=== PATIENT | male | born 1945 | race Caucasian/White ===

== ENCOUNTER → 2019-09-18 | Outpatient (CLI) | payer MEDICARE, OTHER | END | disposition home or self-care (01) | LOC: LAB 13:07 | PROVIDERS: ATTEND Surgery | DX: Z01.818 Encounter for other preprocedural examination (principal); R59.9 Enlarged lymph nodes, unspecified | CPT/HCPCS: C9803; U0003; 36415 ==

== ENCOUNTER 2021-01-05 14:01 | Inpatient (IN) | payer MEDICARE, OTHER ==
[~2021-01-05] VITALS: Ht 188 cm; Wt 84.2 kg
[~2021-01-05 14:01] MED LIST: ASPI-886 PO; ATOR40TA59 PO; CLOP75TA PO; FERR-36 PO; HYDR-2761 PO; METO25TA4 PO; POLY17PO29 PO; SENN1TAB99 PO
[2021-01-05] MEDS ORDERED: PANTOPRAZOLE IV PUSH 40 MG VIAL. IVP ONE (16:30)
[2021-01-05] MEDS ORDERED: fentaNYL PF VIAL 100 MCG/2 ML VIAL IVP ONE (16:30)
--- NOTE | 2021-01-05 16:52 | PHYS DOC ---
Past Medical History Past Surgical History: Other Additional Past Surgical Histo: CARDIAC STENT (KATE DUARTE APRN) Smoking Status: Current Every Day Smoker (KATE DUARTE APRN) General Adult EDM: Chief Complaint: ABDOMINAL PAIN HPI: HPI: Patient is a 75 year old male who presents with here for abdominal pain that he rates a 4 out of 10 he states is like a pressure type pain that is all left- sided goes down into the lower abdomen. He states his stools are very dark for the last 1 to 2 months and has received 3 units of blood in the last 3 weeks. He states he received one at [facility] and then he is received 2 units here. He also just had an NSTEMI on December 22 and had a cardiac stent p laced. Patient admits to being alcoholic and drinks (6) 12 ounce beers a day and occasionally will throw when Bacardi rum. He states he has not smoked a cigarette since December 22. He states he has been taking all his medications as prescribed. He states he is on Plavix, baby aspirin, hypertension medication, high cholesterol medication, cholesterol medication and an iron pill . Patient states he is just feeling foggy minded. Patient denies dizziness, shortness of breath, chest pain, nausea, vomiting, diarrhea, numbness or tingling, focal weakness, headache, vision change. (KATE DUARTE [employer]) Review of Systems: Review of Systems: Constitutional: Denies fever or chills. [] Eyes: Denies change in visual acuity. [] HENT: Denies nasal congestion or sore throat. [] Respiratory: Denies cough or shortness of breath. [] Cardiovascular: Denies chest pain or edema. [] GI: + abdominal pain, denies nausea, vomiting, + dark bloody stools or denies diarrhea. [] : Denies dysuria. [] Musculoskeletal: Denies back pain or joint pain. [] Integument: Denies rash. [] Neurologic: Denies headache, focal weakness or sensory changes. + Foggy minded [] Endocrine: Denies polyuria or polydipsia. [] Lymphatic: Denies swollen glands. [] Psychiatric: Denies depression or anxiety. [] (KATE DUARTE APRN) Heart Score: C/O Chest Pain: No Risk Factors: Risk Factors: DM, Current or recent (<one month) smoker, HTN, HLP, family history of CAD, obesity. Risk Scores: Score 0 - 3: 2.5% MACE over next 6 weeks - Discharge Home Score 4 - 6: 20.3% MACE over next 6 weeks - Admit for Clinical Observation Score 7 - 10: 72.7% MACE over next 6 weeks - Early Invasive Strategies (KATE DUARTE APRN) Current Medications: Current Medications Medications (Trade) Dose Ordered Sig/Maryse Start Time Stop Time Status Last Admin Dose Admin Fentanyl Citrate (Fentanyl 2ml Vial) 25 mcg 1X ONCE 01/05/21 16:30 01/05/21 16:31 DC Pantoprazole Sodium (PROTONIX VIAL for IV PUSH) 40 mg 1X ONCE 01/05/21 16:30 01/05/21 16:31 DC (KATE DUARTE APRN) Allergies: Allergies: Allergies Coded Allergies Type Severity Reaction Last Updated Verified ibuprofen Allergy Unknown 12/22/20 Yes (KATE DUARTE APRN) Physical Exam: PE: Constitutional: Well developed, well nourished, no acute distress, non-toxic appearance. [] HENT: Normocephalic, atraumatic, bilateral external ears normal, oropharynx moist, no oral exudates, nose normal. [] Eyes: PERRLA, EOMI, conjunctiva normal, no discharge. [] Neck: Normal range of motion, no tenderness, supple, no stridor. [] Cardiovascular:Heart rate regular rhythm, no murmur [] Lungs & Thorax: Bilateral breath sounds clear to auscultation [] Abdomen: Bowel sounds normal, soft, no tenderness, no masses, no pulsatile masses. [] Skin: Warm, dry, no erythema, no rash. Slightly jaundiced colored [] Back: No tenderness, no CVA tenderness. [] Extremities: No tenderness, no cyanosis, no clubbing, ROM intact, no edema. [] Neurologic: Alert and oriented X 3, normal motor function, normal sensory function, no focal deficits noted. [] Psychologic: Affect normal, judgement normal, mood normal. [] (KATE DUARTE APRN) Current Patient Data: Vital Signs: Vital Signs Date Time Temp Pulse Resp B/P (MAP) Pulse Ox O2 Delivery O2 Flow Rate FiO2 01/05/21 14:25 98.2 73 18 139/69 (92) 98 Room Air 98.2 (KATE DUARTE APRN) EKG: EK and read by Dr. Orellana is sinus rhythm with RVH and no STEMI (KATE DUARTE APRN) Radiology/Procedures: Radiology/Procedures: [] Impression: [facility] [address] [place] [address] IMAGING REPORT Signed PATIENT: ÁNGEL URIARTE ACCOUNT: [id number] : 1945 LOCATION: ER AGE: 75 SEX: M EXAM STATUS: REG ER ORD. PHYSICIAN: KATE DUARTE APRN REASON: ABD PAIN, BLOODY STOOLS PROCEDURE: CT ABD PELV W/ IV CONTRST ONLY EXAMINATION: CT ABDOMEN+PELVIS W CLINICAL HISTORY: Abdominal pain, bloody stools TECHNIQUE: CT of the abdomen and pelvis was performed using standard technique, scanning from just above the dome of the diaphragm to the symphysis pubis following administration of intravenous contrast. CT Dose Reduction Employed: One or more of the following individualized dose reduction techniques were utilized for this examination: 1. Automated exposure control 2. Adjustment of the mA and/or kV according to patient size 3. Use of iterative reconstruction technique. COMPARISON: CT chest/abdomen/pelvis 12/21/2020, CTA chest 12/05/2020 FINDINGS: Minimal right basilar subsegmental atelectasis and/or scarring. Liver, minimally distended gallbladder, pancreas, spleen, adrenal glands, and kidneys unremarkable. Moderately filled urinary bladder, similar to prior study. Borderline enlarged prostate with mild mass effect on the overlying urinary bladder. Ill-defined increased attenuation and irregularity along the medial wall of the second portion duodenum, similar to prior study. Focal 1.7 cm ovoid fat density in the third portion of the duodenum, nonspecific but similar to prior study. There is otherwise no definite bowel wall thickening. No dilated bowel. Appendix within normal limits. Fusiform infrarenal abdominal aortic aneurysm measuring up to 3.3 x 2.5 cm, similar to prior study. Moderate arterial atherosclerotic calcification. Multiple prominent to mildly enlarged epigastric mesenteric and retroperitoneal lymph nodes measuring up to 11 mm in short axis, nonspecific but possibly reactive. Unchanged thoracolumbar degenerative changes with advanced L5-S1 degenerative disc disease and probable remote compression fracture in the T12 superior endplate IMPRESSION: Nonspecific ill-defined increased density in the second portion of the duodenum, possibly related to duodenitis/diverticulitis. Borderline enlarged prostate, correlate with PSA level. 3.3 cm infrarenal abdominal aortic aneurysm. Additional nonacute findings as described. Electronically signed by: Narinder Jaime DO (01/05/2021 6:57 PM) [facility] DICTATED and SIGNED BY: NARINDER JAIME DO DATE: 01/05/21 [id number] (KATE DUARTE APRN) Course & Med Decision Making: Course & Med Decision Making Pertinent Labs and Imaging studies reviewed. (See chart for details) See HPI. Alert and oriented x4. Ambulatory from wheelchair to his bed with a steady gait. Abdomen soft and dressed. Speaks in full clear sentences. Speaks very slowly. Answers questions appropriately. Abdomen is soft and nontender. He does look slightly jaundiced colored. Cap refill less than 2 sec. Vital signs are within normal limits. I did do a fecal occult card but only scant stool came out I do not see blood. Rectal Exam: Normal tone, No mass, Positive control Stool: Brown Guaiac: Negative CT shows diverticulitis. Patient started on Cipro and Flagyl. Admitted to the hospital. (KATE DUARTE APRN) Course & Med Decision Making I have reviewed and was available for consultation in the emergency department for this patient that was seen by midlevel provider. Agree with plan for admission. CT returned during the next physician's shift. Lacey Orellana DO (LACEY ORELLANA DO) Pia Disclaimer: Pia Disclaimer: This electronic medical record was generated, in whole or in part, using a voice recognition dictation system. (KATE DUARTE APRN) Departure Departure Impression: Primary Impression: Diverticulitis Disposition: ADMITTED INPATIENT Admitting Physician: CYNTHIA (KATE DUARTE APRN) Condition: STABLE Referrals: THAI JONES (PCP) KATE DUARTE APRN Jan 05, 2021 16:52 LACEY ORELLANA DO Jan 08, 2021 06:09
[2021-01-05] MEDS ORDERED: IOHEXOL 300 MG/ML 100ML VIAL. IV ONE (17:15)
[2021-01-05 17:25] LABS: BASO % 0 % (0-3); EOS # 0.6 x10^3/uL (0.0-0.7); EOS % 7 % (0-3); HEMATOCRIT 30.1 % (39.0-53.0); HEMOGLOBIN 9.8 g/dL (13.0-17.5); LYMPH # 1.9 x10^3/uL (1.0-4.8); LYMPH % 20 % (24-48); MEAN CORPUSCULAR HEMOGLOBIN 24 pg (25-35); MEAN CORPUSCULAR HGB CONC 33 g/dL (31-37); MEAN CORPUSCULAR VOLUME 72 fL (79-100); MONO % 10 % (0-9); NEUT # 6.1 x10^3/uL (1.8-7.7); NEUT % 63 % (31-73); PLATELET COUNT 517 x10^3/uL (140-400); RED BLOOD COUNT 4.19 x10^6/uL (4.30-5.70); RED CELL DISTRIBUTION WIDTH 28.8 % (11.5-14.5); WHITE BLOOD COUNT 9.6 x10^3/uL (4.0-11.0)
[2021-01-05 17:32] LABS: FECAL OB PT NEGATIVE (NEG)
--- NOTE | 2021-01-05 19:00 | RAD ---
EXAMINATION: CT ABDOMEN+PELVIS W CLINICAL HISTORY: Abdominal pain, bloody stools TECHNIQUE: CT of the abdomen and pelvis was performed using standard technique, scanning from just ab ove the dome of the diaphragm to the symphysis pubis following administration of intravenous contrast . CT Dose Reduction Employed: One or more of the following individualized dose reduction techniques wer e utilized for this examination: 1. Automated exposure control 2. Adjustment of the mA and/or kV ac cording to patient size 3. Use of iterative reconstruction technique. COMPARISON: CT chest/abdomen/pelvis 12/21/2020, CTA chest 12/05/2020 FINDINGS: Minimal right basilar subsegmental atelectasis and/or scarring. Liver, minimally distended gallbladder, pancreas, spleen, adrenal glands, and kidneys unremarkable. Moderately filled urinary bladder, similar to prior study. Borderline enlarged prostate with mild mas s effect on the overlying urinary bladder. Ill-defined increased attenuation and irregularity along the medial wall of the second portion duoden um, similar to prior study. Focal 1.7 cm ovoid fat density in the third portion of the duodenum, nons pecific but similar to prior study. There is otherwise no definite bowel wall thickening. No dilated bowel. Appendix within normal limits. Fusiform infrarenal abdominal aortic aneurysm measuring up to 3.3 x 2.5 cm, similar to prior study. M oderate arterial atherosclerotic calcification. Multiple prominent to mildly enlarged epigastric mese nteric and retroperitoneal lymph nodes measuring up to 11 mm in short axis, nonspecific but possibly reactive. Unchanged thoracolumbar degenerative changes with advanced L5-S1 degenerative disc disease and probab le remote compression fracture in the T12 superior endplate IMPRESSION: Nonspecific ill-defined increased density in the second portion of the duodenum, possibly related to duodenitis/diverticulitis. Borderline enlarged prostate, correlate with PSA level. 3.3 cm infrarenal abdominal aortic aneurysm. Additional nonacute findings as described. Electronically signed by: Narinder Clark DO (01/05/2021 6:57 PM) [facility]
[2021-01-05 19:02] LABS: CALCIUM 8.3 mg/dL (8.5-10.1); CREATININE 1.1 mg/dL (0.7-1.3); GFR 65.1; POTASSIUM 3.9 mmol/L (3.5-5.1); PROTHROMBIN TIME PATIENT 13.8 SEC (11.7-14.0)
[2021-01-05 19:02] LABS: ANISOCYTOSIS MARKED; HYPOCHROMIA MOD; MICROCYTOSIS SLIGHT; PLT ESTIMATE INCREASED (ADEQUATE); TARGET CELLS FEW
[2021-01-05 19:08] LABS: ALBUMIN 2.9 g/dL (3.4-5.0); ALBUMIN/GLOBULIN RATIO 0.7 (1.0-1.7); TOTAL BILIRUBIN 0.3 mg/dL (0.2-1.0)
[2021-01-05] MEDS ORDERED: fentaNYL PF VIAL 100 MCG/2 ML VIAL IVP PRN (19:30)
[2021-01-05] MEDS ORDERED: CIPROFLOXACIN 400MG PREMIX 200 ML IV ONE (19:30)
[2021-01-05 20:30] LABS: BILIRUBIN,URINE NEGATIVE (NEG); CLARITY,URINE CLEAR; COLOR,URINE YELLOW; NITRITE,URINE NEGATIVE (NEG); PROTEIN,URINE NEGATIVE (NEG-TRACE); UROBILINOGEN,URINE 0.2 mg/dL (0.2 mg/dL)
[2021-01-05 20:38] LABS: BACTERIA,URINE 0 /HPF (0-FEW); BARBITURATES NEG (NEG); BENZODIAZEPINES POS (NEG); CANNABINOIDS NEG (NEG); COCAINE NEG (NEG); HYALINE CASTS, URINE FEW /HPF; METHADONE NEG (NEG); OPIATES NEG (NEG); PHENCYCLIDINE NEG (NEG); RBC,URINE 0 /HPF (0-2); WBC,URINE 0 /HPF (0-4)
[2021-01-05 20:40] LABS: AMPHETAMINE/METHAMPHETAMINE NEG (NEG)
[2021-01-05 22:38] VITALS: BP 157/89
[2021-01-06] MEDS ORDERED: diphenhydrAMINE HCL 25 MG CAPSULE PO ONE (00:15)
--- NOTE | 2021-01-06 00:23 | EKG ---
[facility] [address] [place] [address] Test Date: 2021-01-05 Test Time: 17:17:45 Pat Name: ÁNGEL URIARTE Department: Room: Gender: Sales Specialist: : 1945 Requested By: KATE DUARTE Order Number: [id number] Reading MD: Measurements Intervals [place] Rate: 82 P: 24 OR: 160 QRS: 208 QRSD: 104 T: 19 QT: 396 QTc: 466 Interpretive Statements SINUS RHYTHM ABNORMAL RIGHT SUPERIOR AXIS DEVIATION R-S TRANSITION ZONE IN V LEADS DISPLACED TO THE RIGHT CONSIDER RIGHT VENTRICULAR HYPERTROPHY QRS(T) CONTOUR ABNORMALITY CONSISTENT WITH INFERIOR INFARCT PROBABLY OLD ABNORMAL ECG RI6.02 No previous ECG available for comparison
[2021-01-06] MEDS: DIPHENHYDRAMINE/ZINC ACETATE 2%/0.1% TOPICAL CREAM 28GM TUBE. TP PRN ×2 (00:47→11:02)
[2021-01-06 03:00] VITALS: BP 154/82
[2021-01-06 07:00] VITALS: BP 152/78
[2021-01-06 07:34] LABS: BASO # 0.1 x10^3/uL (0.0-0.2); BASO % 1 % (0-3); EOS # 0.8 x10^3/uL (0.0-0.7); EOS % 13 % (0-3); HEMATOCRIT 28.9 % (39.0-53.0); HEMOGLOBIN 9.2 g/dL (13.0-17.5); LYMPH # 1.4 x10^3/uL (1.0-4.8); LYMPH % 22 % (24-48); MEAN CORPUSCULAR HEMOGLOBIN 23 pg (25-35); MEAN CORPUSCULAR HGB CONC 32 g/dL (31-37); MEAN CORPUSCULAR VOLUME 73 fL (79-100); MONO # 0.7 x10^3/uL (0.0-1.1); MONO % 12 % (0-9); NEUT # 3.2 x10^3/uL (1.8-7.7); NEUT % 52 % (31-73); PLATELET COUNT 453 x10^3/uL (140-400); RED BLOOD COUNT 3.96 x10^6/uL (4.30-5.70); RED CELL DISTRIBUTION WIDTH 28.8 % (11.5-14.5); WHITE BLOOD COUNT 6.1 x10^3/uL (4.0-11.0)
[2021-01-06 07:49] LABS: ALBUMIN 2.8 g/dL (3.4-5.0); ALBUMIN/GLOBULIN RATIO 0.7 (1.0-1.7); CALCIUM 8.5 mg/dL (8.5-10.1); CREATININE 0.9 mg/dL (0.7-1.3); POTASSIUM 3.9 mmol/L (3.5-5.1); TOTAL BILIRUBIN 0.4 mg/dL (0.2-1.0)
--- NOTE | 2021-01-06 10:11 | PDOC ---
Date of Service: DATE: 01/06/21 TIME: 09:55 Subjective: Subjective: Please see GI consult from 12/24 and progress note from 12/25/20. Was here then for NSTEMI and had cardiac stent placement. We saw for "black stools" prior to admission and TERRI improved/stabilized w/ transfusion. Discussion with cardiology re: inpt vs outpt scopes - recommendation to follow- up for previously scheduled appt w/ Dr. Carlin and to DC home on iron and PPI. He says today that he saw Dr. Carlin on Wednesday who recommended he come to the ER "for scopes." He reports "dark brown stools" intermittently and occasional upper abdominal discomfort. Denies reflux, dysphagia, n/v, diarrhea, constipation, hematochezia, melena, and weight loss. He is taking OTC iron QD. Has no idea if he's taking a PPI - it is not included on his hand-written medication list he brought with him (and neither is iron). List includes ASA and Plavix. His biggest complaint is a rash on his arms and abdomen that has been bothersome for 1.5 years and is usually controlled w/ Benadryl and an ointment. He also tells me about previous ENT eval and lymph node biopsy "on my neck" that was "inconclusive." Objective: Objective: Discharge summary reviewed - discharge meds included iron but not PPI. Vital Signs: Vital Signs Date Time Temp Pulse Resp B/P (MAP) Pulse Ox O2 Delivery O2 Flow Rate FiO2 01/06/21 07:00 98.3 77 18 152/78 (102) 98 98.3 01/06/21 03:49 Room Air Labs: Laboratory Tests Test 01/05/21 17:00 01/05/21 17:10 01/05/21 18:40 01/05/21 20:24 Stool Occult Blood Negative White Blood Count 9.6 x10^3/uL Red Blood Count 4.19 x10^6/uL Hemoglobin 9.8 g/dL Hematocrit 30.1 % Mean Corpuscular Volume 72 fL Mean Corpuscular Hemoglobin 24 pg Mean Corpuscular Hemoglobin Concent 33 g/dL Red Cell Distribution Width 28.8 % Platelet Count 517 x10^3/uL Neutrophils (%) (Auto) 63 % Lymphocytes (%) (Auto) 20 % Monocytes (%) (Auto) 10 % Eosinophils (%) (Auto) 7 % Basophils (%) (Auto) 0 % Neutrophils # (Auto) 6.1 x10^3/uL Lymphocytes # (Auto) 1.9 x10^3/uL Monocytes # (Auto) 1.0 x10^3/uL Eosinophils # (Auto) 0.6 x10^3/uL Basophils # (Auto) 0.0 x10^3/uL Platelet Estimate Increased Hypochromasia Mod Anisocytosis Marked Microcytosis Slight Target Cells Few Prothrombin Time 13.8 SEC Prothromb Time International Ratio 1.1 Activated Partial Thromboplast Time 34 SEC Sodium Level 133 mmol/L Potassium Level 3.9 mmol/L Chloride Level 100 mmol/L Carbon Dioxide Level 27 mmol/L Anion Gap 6 Blood Urea Nitrogen 11 mg/dL Creatinine 1.1 mg/dL Estimated GFR (Cockcroft-Gault) 65.1 BUN/Creatinine Ratio 10 Glucose Level 103 mg/dL Calcium Level 8.3 mg/dL Total Bilirubin 0.3 mg/dL Aspartate Amino Transf (AST/SGOT) 26 U/L Alanine Aminotransferase (ALT/SGPT) 16 U/L Alkaline Phosphatase 94 U/L Ammonia < 10 mcmol/L Troponin I Quantitative 0.023 ng/mL TM-[place]io-F-Type Natriuretic Peptide 253 pg/mL Total Protein 7.0 g/dL Albumin 2.9 g/dL Albumin/Globulin Ratio 0.7 Lipase 240 U/L Ethyl Alcohol Level < 10 mg/dL Urine Collection Type Unknown Urine Color Yellow Urine Clarity Clear Urine pH 7.0 Urine Specific [place] 1.015 Urine Protein Negative mg/dL Urine Glucose (UA) Negative mg/dL Urine Ketones (Stick) Negative mg/dL Urine Blood Negative Urine Nitrite Negative Urine Bilirubin Negative Urine Urobilinogen Dipstick 0.2 mg/dL Urine Leukocyte Esterase Negative Urine RBC 0 /HPF Urine WBC 0 /HPF Urine Bacteria 0 /HPF Urine Hyaline Casts Few /HPF Urine Mucus Slight /LPF Urine Opiates Screen Neg Urine Methadone Screen Neg Urine Barbiturates Neg Urine Phencyclidine Screen Neg Urine Amphetamine/Methamphetamine Neg Urine Benzodiazepines Screen Pos Urine Cocaine Screen Neg Urine Cannabinoids Screen Neg Urine Ethyl Alcohol Neg Test 01/06/21 06:20 White Blood Count 6.1 x10^3/uL Red Blood Count 3.96 x10^6/uL Hemoglobin 9.2 g/dL Hematocrit 28.9 % Mean Corpuscular Volume 73 fL Mean Corpuscular Hemoglobin 23 pg Mean Corpuscular Hemoglobin Concent 32 g/dL Red Cell Distribution Width 28.8 % Platelet Count 453 x10^3/uL Neutrophils (%) (Auto) 52 % Lymphocytes (%) (Auto) 22 % Monocytes (%) (Auto) 12 % Eosinophils (%) (Auto) 13 % Basophils (%) (Auto) 1 % Neutrophils # (Auto) 3.2 x10^3/uL Lymphocytes # (Auto) 1.4 x10^3/uL Monocytes # (Auto) 0.7 x10^3/uL Eosinophils # (Auto) 0.8 x10^3/uL Basophils # (Auto) 0.1 x10^3/uL Sodium Level 134 mmol/L Potassium Level 3.9 mmol/L Chloride Level 101 mmol/L Carbon Dioxide Level 27 mmol/L Anion Gap 6 Blood Urea Nitrogen 9 mg/dL Creatinine 0.9 mg/dL Estimated GFR (Cockcroft-Gault) 82.0 BUN/Creatinine Ratio 10 Glucose Level 97 mg/dL Calcium Level 8.5 mg/dL Total Bilirubin 0.4 mg/dL Aspartate Amino Transf (AST/SGOT) 36 U/L Alanine Aminotransferase (ALT/SGPT) 18 U/L Alkaline Phosphatase 87 U/L Total Protein 7.0 g/dL Albumin 2.8 g/dL Albumin/Globulin Ratio 0.7 Imaging: CT A/P IMPRESSION: Nonspecific ill-defined increased density in the second portion of the duodenum, possibly related to duodenitis/diverticulitis. Borderline enlarged prostate, correlate with PSA level. 3.3 cm infrarenal abdominal aortic aneurysm. Additional nonacute findings as described. PE: GEN: NAD HEENT: Atraumatic, PERRL LUNGS: CTAB anteriorly HEART: RRR ABD: NABS, S/ND/NT EXTREMITY: trace edema BLE (R>L) SKIN: rash BUE, actively scratching, skin irritated and bleeding NEURO/PSYCH: A & O 3, odd affect A/P: "Dark" stools and upper abd discomfort - both intermittent TERRI - know issue from previous admission - Hgb stable, Hemoccult negative Abnormal CT - "nonspecific ill-defined increased density in the second portion of the duodenum, possibly related to duodenitis/diverticulitis" CRC screen - colonoscopy in 2003 Diverticulosis, hemorrhoids CAD, recent stent placement, on Plavix and ASA Rash - defer to primary Alcohol overuse -- Stent placement ~2 weeks ago. Resume PPI, continue iron. Previously recommended outpt scopes w/ established supervisor prep but apparently told to come back here. Says he ate breakfast - okay to continue PO per GI. Unclear significance of CT findings. He was given IV atbx - not sure he needs to continue these. Will review all w/ Dr. Merritt. Justicifation of Admission Dx: Justifications for Admission: Justification of Admission Dx: Yes SEE HERNANDEZ Jan 06, 2021 10:11
[2021-01-06 11:00] VITALS: BP 146/68
[2021-01-06] MEDS: PANTOPRAZOLE 40 MG TABLET.DR. PO SCH (11:01)
[2021-01-06] MEDS: FERROUS SULFATE 325 MG TABLET. PO SCH ×2 (11:01→17:02)
[2021-01-06] MEDS ORDERED: diphenhydrAMINE HCL 25 MG CAPSULE PO PRN (11:15)
--- NOTE | 2021-01-06 11:30 | NUR ---
SW following. Discussed with RN, pt from home alone, room air, cardiac diet. GI following. Pt moving to room 426. RN advised no SW needs at this time. SW will continue to follow.
--- NOTE | 2021-01-06 11:43 | NUR ---
report given to LEXI Abraham. patient transferred via bed to [facility]
[2021-01-06 15:26] VITALS: BP 136/75
[2021-01-06] MEDS ORDERED: DEXTROSE 50% 25 GM / 50ML DISP.SYRIN. IV PRN (15:30)
[2021-01-06] MEDS ORDERED: PROCHLORPERAZINE 10 MG/2 ML VIAL. IV PRN (15:30)
[2021-01-06] MEDS ORDERED: ONDANSETRON PF 4 MG/2 ML VIAL. IVP PRN (15:30)
[2021-01-06] MEDS ORDERED: ACETAMINOPHEN 325 MG TABLET. PO PRN (15:30)
--- NOTE | 2021-01-06 15:32 | PDOC1 ---
History and Physical Date of Service: DOS: DATE: 01/06/21 TIME: 15:21 Chief Complaint: Chief Complain: Abdominal pain History of Present Illness: HPI: History obtained from discussion with the ED physician and chart review: 75 year old male who presents with here for abdominal pain that he rates a 4 out of 10 he states is like a pressure type pain that is all left-sided goes down into the lower abdomen. He states his stools are very dark for the last 1 to 2 months and has received 3 units of blood in the last 3 weeks. He states he received one at [facility] and then he is received 2 units here. He also just had an NSTEMI on December 22 and had a cardiac stent placed. Patient admits to being alcoholic and drinks (6) 12 ounce beers a day and occasionally will throw when Bacardi rum. He states he has not smoked a cigarette since December 22. He states he has been taking all his medications as prescribed. He states he is on Plavix, baby aspirin, hypertension medication, high cholesterol medication, cholesterol medication and an iron pill. Patient states he is just feeling foggy minded. Patient denies dizziness, shortness of breath, chest pain, nausea, vomiting, diarrhea, numbness or tingling, focal weakness, headache, vision change. Past Medical/Surgical History: PMH/PSH: Past Surgical History: CARDIAC STENT Smoking Status: Current Every Day Smoker Allergies: Allergies: Coded Allergies: ibuprofen (Verified Allergy, Unknown, 12/22/20) Family History: Family History: Reviewed with no relevant findings Social History: Social History: Smoking Status: Current Every Day Smoker Current Medications: Current Medications Current Medications Fentanyl Citrate (Fentanyl 2ml Vial) 25 mcg 1X ONCE IVP Last administered on 01/05/21at 19:11; Start 01/05/21 at 16:30; Stop 01/05/21 at 16:31; Status DC Pantoprazole Sodium (PROTONIX VIAL for IV PUSH) 40 mg 1X ONCE IVP Last administered on 01/05/21at 19:11; Start 01/05/21 at 16:30; Stop 01/05/21 at 16:31; Status DC Iohexol (Omnipaque 300 Mg/ml) 75 ml 1X ONCE IV Last administered on 01/05/21at 17:15; Start 01/05/21 at 17:15; Stop 01/05/21 at 17:16; Status DC Ciprofloxacin/ Dextrose 200 ml @ 200 mls/hr 1X ONCE IV Last administered on 01/05/21at 20:43; Start 01/05/21 at 19:30; Stop 01/05/21 at 20:29; Status DC Metronidazole 100 ml @ 100 mls/hr 1X ONCE IV ; Start 01/05/21 at 19:30; Stop 01/05/21 at 20:29; Status DC Fentanyl Citrate (Fentanyl 2ml Vial) 50 mcg PRN Q1HR PRN IVP PAIN Last administered on 01/06/21at 03:19; Start 01/05/21 at 19:30; Stop 01/06/21 at 19:29 Diphenhydramine HCl (Benadryl) 50 mg 1X ONCE PO Last administered on 01/06/21at 00:22; Start 01/06/21 at 00:15; Stop 01/06/21 at 00:18; Status DC Zinc Acetate/ Diphenhydramine (Benadryl Topical) 1 russell PRN Q2HRS PRN TP ITCHING Last administered on 01/06/21at 11:02; Start 01/06/21 at 00:15 Pantoprazole Sodium (Protonix) 40 mg DAILYAC PO Last administered on 01/06/21at 11:01; Start 01/06/21 at 11:00 Ferrous Sulfate (Feosol) 325 mg BIDWMEALS PO Last administered on 01/06/21at 11:01; Start 01/06/21 at 11:00 Diphenhydramine HCl (Benadryl) 25 mg PRN Q6HRS PRN PO ITCHING; Start 01/06/21 at 11:15 Active Scripts Active Miralax (Polyethylene Glycol 3350) 17 Gm Powd.pack 1 Packet PO DAILY 28 Days dissolve in water Senna-Docusate Sodium Tablet (Sennosides/Docusate Sodium) 1 Each Tablet 2 Tab PO BID 20 Days Aspirin Ec (Aspirin) 81 Mg Tablet.dr 1 Tab PO DAILY 30 Days Atorvastatin Calcium 40 Mg Tablet 40 Mg PO QHS 30 Days Metoprolol Tartrate 25 Mg Tablet 12.5 Mg PO BID 30 Days Clopidogrel (Clopidogrel Bisulfate) 75 Mg Tablet 75 Mg PO DAILYWBKFT 30 Days Reported Iron (Ferrous Sulfate) 325 Mg Tablet 1 Tab PO DAILY 30 Days ROS: Review of Systems Review of System REVIEW OF SYSTEMS: GENERAL: Denies weakness SKIN: No bruising, hair changes or rashes. EYES: No blurred, double or loss of vision. NOSE AND THROAT: No history of nosebleeds, hoarseness or sore throat. HEART: No history of palpitations, chest pain or shortness of breath on exertion. LUNGS: Denies cough, hemoptysis, wheezing or shortness of breath. GASTROINTESTINAL: Positive for abdominal pain GENITOURINARY: No history of frequency, urgency, hesitancy or nocturia. NEUROLOGIC: Denies history of numbness, tingling, or tremor. PSYCHIATRIC: No history of panic, anxiety or depression. ENDOCRINE: No history of heat or cold intolerance, polyuria or polydipsia. EXTREMITIES: Denies joint pain, pain on walking or stiffness. Physical Exam: Vital Signs: Vital Signs Date Time Temp Pulse Resp B/P (MAP) Pulse Ox O2 Delivery O2 Flow Rate FiO2 01/06/21 11:00 97.9 89 18 146/68 (94) 100 97.9 01/06/21 08:00 Room Air Physcial Exam: General: Well developed, well nourished, no acute distress, well appearing HEENT: Pupils equally round and reactive to light, EOMI, no discharge, normal conjunctiva Neck: Supple, no nuchal rigidity, no JVD, trachea midline, no tenderness Cardiac: RRR, no murmurs, no gallops, no rubs Chest/Lungs: CTAB, no wheeze, no rhonchi, no crackles Abdomen: soft, non-distended, no guarding, no peritoneal signs, non-tender Back: No tenderness Extremities: no edema, pulses intact, non-tender,capillary refill <3 sec bilateral upper and lower extremities, Neuro: Alert and oriented x 4, no focal deficits, normal speech Labs: Labs: Laboratory Tests Test 01/05/21 17:00 01/05/21 17:10 01/05/21 18:40 01/05/21 20:24 Stool Occult Blood Negative (NEG) White Blood Count 9.6 x10^3/uL (4.0-11.0) Red Blood Count 4.19 x10^6/uL (4.30-5.70) Hemoglobin 9.8 g/dL (13.0-17.5) Hematocrit 30.1 % (39.0-53.0) Mean Corpuscular Volume 72 fL (79-100) Mean Corpuscular Hemoglobin 24 pg (25-35) Mean Corpuscular Hemoglobin Concent 33 g/dL (31-37) Red Cell Distribution Width 28.8 % (11.5-14.5) Platelet Count 517 x10^3/uL (140-400) Neutrophils (%) (Auto) 63 % (31-73) Lymphocytes (%) (Auto) 20 % (24-48) Monocytes (%) (Auto) 10 % (0-9) Eosinophils (%) (Auto) 7 % (0-3) Basophils (%) (Auto) 0 % (0-3) Neutrophils # (Auto) 6.1 x10^3/uL (1.8-7.7) Lymphocytes # (Auto) 1.9 x10^3/uL (1.0-4.8) Monocytes # (Auto) 1.0 x10^3/uL (0.0-1.1) Eosinophils # (Auto) 0.6 x10^3/uL (0.0-0.7) Basophils # (Auto) 0.0 x10^3/uL (0.0-0.2) Platelet Estimate Increased (ADEQUATE) Hypochromasia Mod Anisocytosis Marked Microcytosis Slight Target Cells Few Prothrombin Time 13.8 SEC (11.7-14.0) Prothromb Time International Ratio 1.1 (0.8-1.1) Activated Partial Thromboplast Time 34 SEC (24-38) Sodium Level 133 mmol/L (136-145) Potassium Level 3.9 mmol/L (3.5-5.1) Chloride Level 100 mmol/L (98-107) Carbon Dioxide Level 27 mmol/L (21-32) Anion Gap 6 (6-14) Blood Urea Nitrogen 11 mg/dL (8-26) Creatinine 1.1 mg/dL (0.7-1.3) Estimated GFR (Cockcroft-Gault) 65.1 BUN/Creatinine Ratio 10 (6-20) Glucose Level 103 mg/dL (70-99) Calcium Level 8.3 mg/dL (8.5-10.1) Total Bilirubin 0.3 mg/dL (0.2-1.0) Aspartate Amino Transf (AST/SGOT) 26 U/L (15-37) Alanine Aminotransferase (ALT/SGPT) 16 U/L (16-63) Alkaline Phosphatase 94 U/L (46-116) Ammonia < 10 mcmol/L (11-34) Troponin I Quantitative 0.023 ng/mL (0.000-0.055) BB-Krs-Y-Type Natriuretic Peptide 253 pg/mL (0-449) Total Protein 7.0 g/dL (6.4-8.2) Albumin 2.9 g/dL (3.4-5.0) Albumin/Globulin Ratio 0.7 (1.0-1.7) Lipase 240 U/L (73-393) Ethyl Alcohol Level < 10 mg/dL (0-10) Urine Collection Type Unknown Urine Color Yellow Urine Clarity Clear Urine pH 7.0 (<5.0-8.0) Urine Specific Vivian 1.015 (1.000-1.030) Urine Protein Negative mg/dL (NEG-TRACE) Urine Glucose (UA) Negative mg/dL (NEG) Urine Ketones (Stick) Negative mg/dL (NEG) Urine Blood Negative (NEG) Urine Nitrite Negative (NEG) Urine Bilirubin Negative (NEG) Urine Urobilinogen Dipstick 0.2 mg/dL (0.2 mg/dL) Urine Leukocyte Esterase Negative (NEG) Urine RBC 0 /HPF (0-2) Urine WBC 0 /HPF (0-4) Urine Bacteria 0 /HPF (0-FEW) Urine Hyaline Casts Few /HPF Urine Mucus Slight /LPF Urine Opiates Screen Neg (NEG) Urine Methadone Screen Neg (NEG) Urine Barbiturates Neg (NEG) Urine Phencyclidine Screen Neg (NEG) Urine Amphetamine/Methamphetamine Neg (NEG) Urine Benzodiazepines Screen Pos (NEG) Urine Cocaine Screen Neg (NEG) Urine Cannabinoids Screen Neg (NEG) Urine Ethyl Alcohol Neg (NEG) Test 01/06/21 06:20 White Blood Count 6.1 x10^3/uL (4.0-11.0) Red Blood Count 3.96 x10^6/uL (4.30-5.70) Hemoglobin 9.2 g/dL (13.0-17.5) Hematocrit 28.9 % (39.0-53.0) Mean Corpuscular Volume 73 fL (79-100) Mean Corpuscular Hemoglobin 23 pg (25-35) Mean Corpuscular Hemoglobin Concent 32 g/dL (31-37) Red Cell Distribution Width 28.8 % (11.5-14.5) Platelet Count 453 x10^3/uL (140-400) Neutrophils (%) (Auto) 52 % (31-73) Lymphocytes (%) (Auto) 22 % (24-48) Monocytes (%) (Auto) 12 % (0-9) Eosinophils (%) (Auto) 13 % (0-3) Basophils (%) (Auto) 1 % (0-3) Neutrophils # (Auto) 3.2 x10^3/uL (1.8-7.7) Lymphocytes # (Auto) 1.4 x10^3/uL (1.0-4.8) Monocytes # (Auto) 0.7 x10^3/uL (0.0-1.1) Eosinophils # (Auto) 0.8 x10^3/uL (0.0-0.7) Basophils # (Auto) 0.1 x10^3/uL (0.0-0.2) Sodium Level 134 mmol/L (136-145) Potassium Level 3.9 mmol/L (3.5-5.1) Chloride Level 101 mmol/L (98-107) Carbon Dioxide Level 27 mmol/L (21-32) Anion Gap 6 (6-14) Blood Urea Nitrogen 9 mg/dL (8-26) Creatinine 0.9 mg/dL (0.7-1.3) Estimated GFR (Cockcroft-Gault) 82.0 BUN/Creatinine Ratio 10 (6-20) Glucose Level 97 mg/dL (70-99) Calcium Level 8.5 mg/dL (8.5-10.1) Total Bilirubin 0.4 mg/dL (0.2-1.0) Aspartate Amino Transf (AST/SGOT) 36 U/L (15-37) Alanine Aminotransferase (ALT/SGPT) 18 U/L (16-63) Alkaline Phosphatase 87 U/L (46-116) Total Protein 7.0 g/dL (6.4-8.2) Albumin 2.8 g/dL (3.4-5.0) Albumin/Globulin Ratio 0.7 (1.0-1.7) Laboratory Tests Test 9/19/21 17:00 01/05/21 17:10 01/05/21 18:40 01/05/21 20:24 Stool Occult Blood Negative (NEG) White Blood Count 9.6 x10^3/uL (4.0-11.0) Red Blood Count 4.19 x10^6/uL (4.30-5.70) Hemoglobin 9.8 g/dL (13.0-17.5) Hematocrit 30.1 % (39.0-53.0) Mean Corpuscular Volume 72 fL (79-100) Mean Corpuscular Hemoglobin 24 pg (25-35) Mean Corpuscular Hemoglobin Concent 33 g/dL (31-37) Red Cell Distribution Width 28.8 % (11.5-14.5) Platelet Count 517 x10^3/uL (140-400) Neutrophils (%) (Auto) 63 % (31-73) Lymphocytes (%) (Auto) 20 % (24-48) Monocytes (%) (Auto) 10 % (0-9) Eosinophils (%) (Auto) 7 % (0-3) Basophils (%) (Auto) 0 % (0-3) Neutrophils # (Auto) 6.1 x10^3/uL (1.8-7.7) Lymphocytes # (Auto) 1.9 x10^3/uL (1.0-4.8) Monocytes # (Auto) 1.0 x10^3/uL (0.0-1.1) Eosinophils # (Auto) 0.6 x10^3/uL (0.0-0.7) Basophils # (Auto) 0.0 x10^3/uL (0.0-0.2) Platelet Estimate Increased (ADEQUATE) Hypochromasia Mod Anisocytosis Marked Microcytosis Slight Target Cells Few Prothrombin Time 13.8 SEC (11.7-14.0) Prothromb Time International Ratio 1.1 (0.8-1.1) Activated Partial Thromboplast Time 34 SEC (24-38) Sodium Level 133 mmol/L (136-145) Potassium Level 3.9 mmol/L (3.5-5.1) Chloride Level 100 mmol/L (98-107) Carbon Dioxide Level 27 mmol/L (21-32) Anion Gap 6 (6-14) Blood Urea Nitrogen 11 mg/dL (8-26) Creatinine 1.1 mg/dL (0.7-1.3) Estimated GFR (Cockcroft-Gault) 65.1 BUN/Creatinine Ratio 10 (6-20) Glucose Level 103 mg/dL (70-99) Calcium Level 8.3 mg/dL (8.5-10.1) Total Bilirubin 0.3 mg/dL (0.2-1.0) Aspartate Amino Transf (AST/SGOT) 26 U/L (15-37) Alanine Aminotransferase (ALT/SGPT) 16 U/L (16-63) Alkaline Phosphatase 94 U/L (46-116) Ammonia < 10 mcmol/L (11-34) Troponin I Quantitative 0.023 ng/mL (0.000-0.055) IO-Bxg-D-Type Natriuretic Peptide 253 pg/mL (0-449) Total Protein 7.0 g/dL (6.4-8.2) Albumin 2.9 g/dL (3.4-5.0) Albumin/Globulin Ratio 0.7 (1.0-1.7) Lipase 240 U/L (73-393) Ethyl Alcohol Level < 10 mg/dL (0-10) Urine Collection Type Unknown Urine Color Yellow Urine Clarity Clear Urine pH 7.0 (<5.0-8.0) Urine Specific Vivian 1.015 (1.000-1.030) Urine Protein Negative mg/dL (NEG-TRACE) Urine Glucose (UA) Negative mg/dL (NEG) Urine Ketones (Stick) Negative mg/dL (NEG) Urine Blood Negative (NEG) Urine Nitrite Negative (NEG) Urine Bilirubin Negative (NEG) Urine Urobilinogen Dipstick 0.2 mg/dL (0.2 mg/dL) Urine Leukocyte Esterase Negative (NEG) Urine RBC 0 /HPF (0-2) Urine WBC 0 /HPF (0-4) Urine Bacteria 0 /HPF (0-FEW) Urine Hyaline Casts Few /HPF Urine Mucus Slight /LPF Urine Opiates Screen Neg (NEG) Urine Methadone Screen Neg (NEG) Urine Barbiturates Neg (NEG) Urine Phencyclidine Screen Neg (NEG) Urine Amphetamine/Methamphetamine Neg (NEG) Urine Benzodiazepines Screen Pos (NEG) Urine Cocaine Screen Neg (NEG) Urine Cannabinoids Screen Neg (NEG) Urine Ethyl Alcohol Neg (NEG) Test 01/06/21 06:20 White Blood Count 6.1 x10^3/uL (4.0-11.0) Red Blood Count 3.96 x10^6/uL (4.30-5.70) Hemoglobin 9.2 g/dL (13.0-17.5) Hematocrit 28.9 % (39.0-53.0) Mean Corpuscular Volume 73 fL (79-100) Mean Corpuscular Hemoglobin 23 pg (25-35) Mean Corpuscular Hemoglobin Concent 32 g/dL (31-37) Red Cell Distribution Width 28.8 % (11.5-14.5) Platelet Count 453 x10^3/uL (140-400) Neutrophils (%) (Auto) 52 % (31-73) Lymphocytes (%) (Auto) 22 % (24-48) Monocytes (%) (Auto) 12 % (0-9) Eosinophils (%) (Auto) 13 % (0-3) Basophils (%) (Auto) 1 % (0-3) Neutrophils # (Auto) 3.2 x10^3/uL (1.8-7.7) Lymphocytes # (Auto) 1.4 x10^3/uL (1.0-4.8) Monocytes # (Auto) 0.7 x10^3/uL (0.0-1.1) Eosinophils # (Auto) 0.8 x10^3/uL (0.0-0.7) Basophils # (Auto) 0.1 x10^3/uL (0.0-0.2) Sodium Level 134 mmol/L (136-145) Potassium Level 3.9 mmol/L (3.5-5.1) Chloride Level 101 mmol/L (98-107) Carbon Dioxide Level 27 mmol/L (21-32) Anion Gap 6 (6-14) Blood Urea Nitrogen 9 mg/dL (8-26) Creatinine 0.9 mg/dL (0.7-1.3) Estimated GFR (Cockcroft-Gault) 82.0 BUN/Creatinine Ratio 10 (6-20) Glucose Level 97 mg/dL (70-99) Calcium Level 8.5 mg/dL (8.5-10.1) Total Bilirubin 0.4 mg/dL (0.2-1.0) Aspartate Amino Transf (AST/SGOT) 36 U/L (15-37) Alanine Aminotransferase (ALT/SGPT) 18 U/L (16-63) Alkaline Phosphatase 87 U/L (46-116) Total Protein 7.0 g/dL (6.4-8.2) Albumin 2.8 g/dL (3.4-5.0) Albumin/Globulin Ratio 0.7 (1.0-1.7) Images: Images PROCEDURE: CT ABD PELV W/ IV CONTRST ONLY IMPRESSION: Nonspecific ill-defined increased density in the second portion of the duodenum, possibly related to duodenitis/diverticulitis. Borderline enlarged prostate, correlate with PSA level. 3.3 cm infrarenal abdominal aortic aneurysm. Assessment/Plan Assessment/Plan Acute abdominal pain due to duodenitis Concern for GI bleeding History of GI bleeding History of recent NSTEMI Admit to hospital service for further management Trend hemoglobin GI consult for outpatient versus inpatient scopes ADAT Resume aspirin and Plavix once hemoglobin stable Hold until hemoglobin is stable for DVT prophylaxis Protonix GI prophylaxis ADA diet CODE STATUS full Discussed with RN and SW Disposition inpatient management as above DPOA: Son In addition to my E/M visit, advance care planning done with A total time of 20 minutes was spent from [phone] to 950 face to face in discussion with the patient and family regarding their goals of care, CODE STATUS. Justifications for Admission Other Justification BETO FOREMAN MD Jan 06, 2021 15:32
[2021-01-06] MEDS: CLOPIDOGREL BISULFATE 75 MG TABLET PO SCH (17:02)
[2021-01-06] MEDS: ASPIRIN ENTERIC COATED 81 MG TABLET.DR. PO SCH (17:02)
[2021-01-06 19:00] VITALS: BP 142/68
[2021-01-06] MEDS: SENNOSIDES 8.6 MG TABLET PO SCH (20:03)
[2021-01-06] MEDS: DOCUSATE SODIUM 100 MG CAPSULE. PO SCH (20:03)
[2021-01-06] MEDS ORDERED: ATORVASTATIN CALCIUM 40 MG TABLET. PO SCH (21:00)
[2021-01-06 22:57] VITALS: BP 133/66
[2021-01-07 02:37] VITALS: BP 140/79
[2021-01-07 07:00] VITALS: BP 165/83
[2021-01-07 07:38] LABS: BASO # 0.1 x10^3/uL (0.0-0.2); BASO % 2 % (0-3); EOS # 0.8 x10^3/uL (0.0-0.7); EOS % 13 % (0-3); HEMATOCRIT 29.7 % (39.0-53.0); HEMOGLOBIN 9.5 g/dL (13.0-17.5); LYMPH % 16 % (24-48); MEAN CORPUSCULAR HEMOGLOBIN 24 pg (25-35); MEAN CORPUSCULAR HGB CONC 32 g/dL (31-37); MEAN CORPUSCULAR VOLUME 75 fL (79-100); MONO # 0.6 x10^3/uL (0.0-1.1); MONO % 9 % (0-9); NEUT # 3.8 x10^3/uL (1.8-7.7); NEUT % 60 % (31-73); PLATELET COUNT 440 x10^3/uL (140-400); RED BLOOD COUNT 3.99 x10^6/uL (4.30-5.70); WHITE BLOOD COUNT 6.3 x10^3/uL (4.0-11.0)
[2021-01-07 08:09] LABS: CALCIUM 8.8 mg/dL (8.5-10.1); CREATININE 0.9 mg/dL (0.7-1.3); MAGNESIUM 2.1 mg/dL (1.8-2.4); PHOSPHORUS 3.4 mg/dL (2.6-4.7); POTASSIUM 4.1 mmol/L (3.5-5.1)
[2021-01-07] MEDS: CLOPIDOGREL BISULFATE 75 MG TABLET PO SCH (08:30)
[2021-01-07] MEDS: DOCUSATE SODIUM 100 MG CAPSULE. PO SCH (08:30)
[2021-01-07] MEDS: ASPIRIN ENTERIC COATED 81 MG TABLET.DR. PO SCH (08:30)
[2021-01-07] MEDS: FERROUS SULFATE 325 MG TABLET. PO SCH (08:30)
[2021-01-07] MEDS: PANTOPRAZOLE 40 MG TABLET.DR. PO SCH (08:30)
[2021-01-07] MEDS: SENNOSIDES 8.6 MG TABLET PO SCH (08:30)
--- NOTE | 2021-01-07 10:05 | PDOC3 ---
Discharge Summary Visit Information Date of Admission: Jan 06, 2021 Date of Discharge: Jan 07, 2021 Admitting Diagnosis: Abdominal Pain Final Diagnosis Problems Medical Problems: (1) Diverticulitis Status: Acute Brief Hospital Course Allergies Allergies Coded Allergies Type Severity Reaction Last Updated Verified ibuprofen Allergy Unknown 12/22/20 Yes Vital Signs Vital Signs Date Time Temp Pulse Resp B/P (MAP) Pulse Ox O2 Delivery O2 Flow Rate FiO2 01/07/21 08:00 Room Air 01/07/21 07:00 97.6 91 18 165/83 (110) 98 97.6 Lab Results Laboratory Tests Test 01/05/21 17:00 01/05/21 17:10 01/05/21 18:40 01/05/21 20:24 Stool Occult Blood Negative (NEG) White Blood Count 9.6 x10^3/uL (4.0-11.0) Red Blood Count 4.19 x10^6/uL (4.30-5.70) Hemoglobin 9.8 g/dL (13.0-17.5) Hematocrit 30.1 % (39.0-53.0) Mean Corpuscular Volume 72 fL (79-100) Mean Corpuscular Hemoglobin 24 pg (25-35) Mean Corpuscular Hemoglobin Concent 33 g/dL (31-37) Red Cell Distribution Width 28.8 % (11.5-14.5) Platelet Count 517 x10^3/uL (140-400) Neutrophils (%) (Auto) 63 % (31-73) Lymphocytes (%) (Auto) 20 % (24-48) Monocytes (%) (Auto) 10 % (0-9) Eosinophils (%) (Auto) 7 % (0-3) Basophils (%) (Auto) 0 % (0-3) Neutrophils # (Auto) 6.1 x10^3/uL (1.8-7.7) Lymphocytes # (Auto) 1.9 x10^3/uL (1.0-4.8) Monocytes # (Auto) 1.0 x10^3/uL (0.0-1.1) Eosinophils # (Auto) 0.6 x10^3/uL (0.0-0.7) Basophils # (Auto) 0.0 x10^3/uL (0.0-0.2) Platelet Estimate Increased (ADEQUATE) Hypochromasia Mod Anisocytosis Marked Microcytosis Slight Target Cells Few Prothrombin Time 13.8 SEC (11.7-14.0) Prothromb Time International Ratio 1.1 (0.8-1.1) Activated Partial Thromboplast Time 34 SEC (24-38) Sodium Level 133 mmol/L (136-145) Potassium Level 3.9 mmol/L (3.5-5.1) Chloride Level 100 mmol/L (98-107) Carbon Dioxide Level 27 mmol/L (21-32) Anion Gap 6 (6-14) Blood Urea Nitrogen 11 mg/dL (8-26) Creatinine 1.1 mg/dL (0.7-1.3) Estimated GFR (Cockcroft-Gault) 65.1 BUN/Creatinine Ratio 10 (6-20) Glucose Level 103 mg/dL (70-99) Calcium Level 8.3 mg/dL (8.5-10.1) Total Bilirubin 0.3 mg/dL (0.2-1.0) Aspartate Amino Transf (AST/SGOT) 26 U/L (15-37) Alanine Aminotransferase (ALT/SGPT) 16 U/L (16-63) Alkaline Phosphatase 94 U/L (46-116) Ammonia < 10 mcmol/L (11-34) Troponin I Quantitative 0.023 ng/mL (0.000-0.055) TG-Fko-K-Type Natriuretic Peptide 253 pg/mL (0-449) Total Protein 7.0 g/dL (6.4-8.2) Albumin 2.9 g/dL (3.4-5.0) Albumin/Globulin Ratio 0.7 (1.0-1.7) Lipase 240 U/L (73-393) Ethyl Alcohol Level < 10 mg/dL (0-10) Urine Collection Type Unknown Urine Color Yellow Urine Clarity Clear Urine pH 7.0 (<5.0-8.0) Urine Specific [place] 1.015 (1.000-1.030) Urine Protein Negative mg/dL (NEG-TRACE) Urine Glucose (UA) Negative mg/dL (NEG) Urine Ketones (Stick) Negative mg/dL (NEG) Urine Blood Negative (NEG) Urine Nitrite Negative (NEG) Urine Bilirubin Negative (NEG) Urine Urobilinogen Dipstick 0.2 mg/dL (0.2 mg/dL) Urine Leukocyte Esterase Negative (NEG) Urine RBC 0 /HPF (0-2) Urine WBC 0 /HPF (0-4) Urine Bacteria 0 /HPF (0-FEW) Urine Hyaline Casts Few /HPF Urine Mucus Slight /LPF Urine Opiates Screen Neg (NEG) Urine Methadone Screen Neg (NEG) Urine Barbiturates Neg (NEG) Urine Phencyclidine Screen Neg (NEG) Urine Amphetamine/Methamphetamine Neg (NEG) Urine Benzodiazepines Screen Pos (NEG) Urine Cocaine Screen Neg (NEG) Urine Cannabinoids Screen Neg (NEG) Urine Ethyl Alcohol Neg (NEG) Test 01/06/21 06:20 01/07/21 07:00 White Blood Count 6.1 x10^3/uL (4.0-11.0) 6.3 x10^3/uL (4.0-11.0) Red Blood Count 3.96 x10^6/uL (4.30-5.70) 3.99 x10^6/uL (4.30-5.70) Hemoglobin 9.2 g/dL (13.0-17.5) 9.5 g/dL (13.0-17.5) Hematocrit 28.9 % (39.0-53.0) 29.7 % (39.0-53.0) Mean Corpuscular Volume 73 fL (79-100) 75 fL (79-100) Mean Corpuscular Hemoglobin 23 pg (25-35) 24 pg (25-35) Mean Corpuscular Hemoglobin Concent 32 g/dL (31-37) 32 g/dL (31-37) Red Cell Distribution Width 28.8 % (11.5-14.5) 29.0 % (11.5-14.5) Platelet Count 453 x10^3/uL (140-400) 440 x10^3/uL (140-400) Neutrophils (%) (Auto) 52 % (31-73) 60 % (31-73) Lymphocytes (%) (Auto) 22 % (24-48) 16 % (24-48) Monocytes (%) (Auto) 12 % (0-9) 9 % (0-9) Eosinophils (%) (Auto) 13 % (0-3) 13 % (0-3) Basophils (%) (Auto) 1 % (0-3) 2 % (0-3) Neutrophils # (Auto) 3.2 x10^3/uL (1.8-7.7) 3.8 x10^3/uL (1.8-7.7) Lymphocytes # (Auto) 1.4 x10^3/uL (1.0-4.8) 1.0 x10^3/uL (1.0-4.8) Monocytes # (Auto) 0.7 x10^3/uL (0.0-1.1) 0.6 x10^3/uL (0.0-1.1) Eosinophils # (Auto) 0.8 x10^3/uL (0.0-0.7) 0.8 x10^3/uL (0.0-0.7) Basophils # (Auto) 0.1 x10^3/uL (0.0-0.2) 0.1 x10^3/uL (0.0-0.2) Sodium Level 134 mmol/L (136-145) 137 mmol/L (136-145) Potassium Level 3.9 mmol/L (3.5-5.1) 4.1 mmol/L (3.5-5.1) Chloride Level 101 mmol/L (98-107) 102 mmol/L (98-107) Carbon Dioxide Level 27 mmol/L (21-32) 27 mmol/L (21-32) Anion Gap 6 (6-14) 8 (6-14) Blood Urea Nitrogen 9 mg/dL (8-26) 17 mg/dL (8-26) Creatinine 0.9 mg/dL (0.7-1.3) 0.9 mg/dL (0.7-1.3) Estimated GFR (Cockcroft-Gault) 82.0 82.0 BUN/Creatinine Ratio 10 (6-20) Glucose Level 97 mg/dL (70-99) 110 mg/dL (70-99) Calcium Level 8.5 mg/dL (8.5-10.1) 8.8 mg/dL (8.5-10.1) Total Bilirubin 0.4 mg/dL (0.2-1.0) Aspartate Amino Transf (AST/SGOT) 36 U/L (15-37) Alanine Aminotransferase (ALT/SGPT) 18 U/L (16-63) Alkaline Phosphatase 87 U/L (46-116) Total Protein 7.0 g/dL (6.4-8.2) Albumin 2.8 g/dL (3.4-5.0) Albumin/Globulin Ratio 0.7 (1.0-1.7) Phosphorus Level 3.4 mg/dL (2.6-4.7) Magnesium Level 2.1 mg/dL (1.8-2.4) Laboratory Tests Test 01/07/21 07:00 White Blood Count 6.3 x10^3/uL (4.0-11.0) Red Blood Count 3.99 x10^6/uL (4.30-5.70) Hemoglobin 9.5 g/dL (13.0-17.5) Hematocrit 29.7 % (39.0-53.0) Mean Corpuscular Volume 75 fL (79-100) Mean Corpuscular Hemoglobin 24 pg (25-35) Mean Corpuscular Hemoglobin Concent 32 g/dL (31-37) Red Cell Distribution Width 29.0 % (11.5-14.5) Platelet Count 440 x10^3/uL (140-400) Neutrophils (%) (Auto) 60 % (31-73) Lymphocytes (%) (Auto) 16 % (24-48) Monocytes (%) (Auto) 9 % (0-9) Eosinophils (%) (Auto) 13 % (0-3) Basophils (%) (Auto) 2 % (0-3) Neutrophils # (Auto) 3.8 x10^3/uL (1.8-7.7) Lymphocytes # (Auto) 1.0 x10^3/uL (1.0-4.8) Monocytes # (Auto) 0.6 x10^3/uL (0.0-1.1) Eosinophils # (Auto) 0.8 x10^3/uL (0.0-0.7) Basophils # (Auto) 0.1 x10^3/uL (0.0-0.2) Sodium Level 137 mmol/L (136-145) Potassium Level 4.1 mmol/L (3.5-5.1) Chloride Level 102 mmol/L (98-107) Carbon Dioxide Level 27 mmol/L (21-32) Anion Gap 8 (6-14) Blood Urea Nitrogen 17 mg/dL (8-26) Creatinine 0.9 mg/dL (0.7-1.3) Estimated GFR (Cockcroft-Gault) 82.0 Glucose Level 110 mg/dL (70-99) Calcium Level 8.8 mg/dL (8.5-10.1) Phosphorus Level 3.4 mg/dL (2.6-4.7) Magnesium Level 2.1 mg/dL (1.8-2.4) Brief Hospital Course HPI: History obtained from discussion with the ED physician and chart review: 75 year old male who presents with here for abdominal pain that he rates a 4 out of 10 he states is like a pressure type pain that is all left-sided goes down into the lower abdomen. He states his stools are very dark for the last 1 to 2 months and has received 3 units of blood in the last 3 weeks. He states he received one at [facility] and then he is received 2 units here. He also just had an NSTEMI on December 22 and had a cardiac stent placed. Patient admits to being alcoholic and drinks (6) 12 ounce beers a day and occasionally will throw when Bacardi rum. He states he has not smoked a cigarette since December 22. He states he has been taking all his medications as prescribed. He states he is on Plavix, baby aspirin, hypertension medication, high cholesterol medication, cholesterol medication and an iron pill. Patient states he is just feeling foggy minded. Patient denies dizziness, shortness of breath, chest pain, nausea, vomiting, diarrhea, numbness or tingling, focal weakness, headache, vision change. 01/07/21 Patient seen and examined at bedside. Abdominal pain improving, reports a mild headache. Evaluated again by GI cleared for discharge did not think this is div erticulitis. Hemoglobin stable. Will follow-up outpatient with GI. Discharge home today. Discharge Information Condition at Discharge: Improved Disposition/Orders: D/C to Home Scheduled Aspirin (Aspirin Ec) 81 Mg Tablet., 1 TAB PO DAILY for CAD for 30 Days, #30 Ref 3 Prescribed by: CHERY PEREZ APRN on 12/24/20 1354 Atorvastatin Calcium (Atorvastatin Calcium) 40 Mg Tablet, 40 MG PO QHS for CAD, cholesterol for 30 Days, #30 Ref 2 Prescribed by: CHERY PEREZ APRN on 12/24/20 1354 Clopidogrel Bisulfate (Clopidogrel) 75 Mg Tablet, 75 MG PO DAILYWBKFT for CAD for 30 Days, #30 Ref 2 Prescribed by: CHERY PEREZ APRN on 12/24/20 1354 Ferrous Sulfate (Iron) 325 Mg Tablet, 1 TAB PO DAILY for anemia for 30 Days, #30 Ref 0 (Reported) Entered as Reported by: DAVID MAE on 12/25/20 1308 Metoprolol Tartrate (Metoprolol Tartrate) 25 Mg Tablet, 12.5 MG PO BID for heart disease for 30 Days, #30 Ref 2 Prescribed by: CHERY PEREZ APRN on 12/24/20 1354 Polyethylene Glycol 3350 (Miralax) 17 Gm Powd.pack, 1 PACKET PO DAILY for constipation for 28 Days, #28 Ref 0 dissolve in water Prescribed by: BETO FOREMAN MD on 12/25/20 0812 Sennosides/Docusate Sodium (Senna-Docusate Sodium Tablet) 1 Each Tablet, 2 TAB PO BID for constipation for 20 Days, #80 Ref 0 Prescribed by: BETO FOREMAN MD on 12/25/20 0812 Justicifation of Admission Dx: Justifications for Admission: Justification of Admission Dx: Yes BENITO GARCIA MD Jan 07, 2021 10:04
--- NOTE | 2021-01-07 10:22 | NUR ---
SW following. Discussed with RN, pt from home alone, room air, cardiac diet. GI following. RN advised no SW needs at this time. SW will continue to follow. Addendum: 01/07/21 at 1023 by TERESA ROBERTO SW Discharge order for home with self care. No SW needs.
[2021-01-07 10:47] VITALS: BP 140/78
--- NOTE | 2021-01-07 10:49 | PDOC ---
Date of Service: DATE: 01/07/21 TIME: 10:44 Subjective: Subjective: Feeling fine - did have a bad headache overnight but it's better. Tolerating diet, no abd pain, would like to go home. Hasn't stooled today but denies dark stools. Objective: Objective: Called by pharmacy yesterday afternoon - okay to resume ASA and Plavix per GI. Vital Signs: Vital Signs Date Time Temp Pulse Resp B/P (MAP) Pulse Ox O2 Delivery O2 Flow Rate FiO2 01/07/21 08:00 Room Air 01/07/21 07:00 97.6 91 18 165/83 (110) 98 97.6 Labs: Laboratory Tests Test 01/07/21 07:00 White Blood Count 6.3 x10^3/uL Red Blood Count 3.99 x10^6/uL Hemoglobin 9.5 g/dL Hematocrit 29.7 % Mean Corpuscular Volume 75 fL Mean Corpuscular Hemoglobin 24 pg Mean Corpuscular Hemoglobin Concent 32 g/dL Red Cell Distribution Width 29.0 % Platelet Count 440 x10^3/uL Neutrophils (%) (Auto) 60 % Lymphocytes (%) (Auto) 16 % Monocytes (%) (Auto) 9 % Eosinophils (%) (Auto) 13 % Basophils (%) (Auto) 2 % Neutrophils # (Auto) 3.8 x10^3/uL Lymphocytes # (Auto) 1.0 x10^3/uL Monocytes # (Auto) 0.6 x10^3/uL Eosinophils # (Auto) 0.8 x10^3/uL Basophils # (Auto) 0.1 x10^3/uL Sodium Level 137 mmol/L Potassium Level 4.1 mmol/L Chloride Level 102 mmol/L Carbon Dioxide Level 27 mmol/L Anion Gap 8 Blood Urea Nitrogen 17 mg/dL Creatinine 0.9 mg/dL Estimated GFR (Cockcroft-Gault) 82.0 Glucose Level 110 mg/dL Calcium Level 8.8 mg/dL Phosphorus Level 3.4 mg/dL Magnesium Level 2.1 mg/dL PE: GEN: NAD LUNGS: CTAB HEART: RRR ABD: NABS, S/ND/NT NEURO/PSYCH: A & O 3 A/P: H/o "dark stools" TERRI - stable CAD, recent stent placement - on Plavix and ASA -- Stable GI-kearns. Okay to DC per GI on iron (encouraged him to take BID-TID) and PPI QD - d/w nurse, Dr. Carbajal, and pt. Our office will call to arrange outpt EGD and colonoscopy. Justicifation of Admission Dx: Justifications for Admission: Justification of Admission Dx: Yes SEE HERNANDEZ Jan 07, 2021 10:49
--- NOTE | 2021-01-07 11:20 | NUR ---
PT DISCHARGED HOME WITH SELF CARE. DISCHARGE INSTRUCTIONS DISCUSSED. PT DENIED QUESTIONS. IV REMOVED. PT PACKED BELONGINGS. AMBULATED TO ED ENTRANCE AND WAS SECURED IN CAR.
== END 2021-01-07 11:23 | disposition home or self-care (01) | DRG 391 ==
LOC: ER 14:01 → 5 SOUTH 19:28 → 4 NORTH 01-06 11:45 → OBSVTOIN 01-06 15:12
PROVIDERS: ADMIT Family Medicine; ATTEND Family Medicine
DX: K29.80 Duodenitis without bleeding (principal); I21.4 Non-ST elevation (NSTEMI) myocardial infarction; E78.00 Pure hypercholesterolemia, unspecified; F17.200 Nicotine dependence, unspecified, uncomplicated; I10 Essential (primary) hypertension; I25.10 Atherosclerotic heart disease of native coronary artery without angina pectoris; I25.2 Old myocardial infarction; I71.4 Abdominal aortic aneurysm, without rupture; K59.00 Constipation, unspecified; K64.9 Unspecified hemorrhoids; N40.0 Benign prostatic hyperplasia without lower urinary tract symptoms; Z79.02 Long term (current) use of antithrombotics/antiplatelets; Z79.82 Long term (current) use of aspirin; Z79.899 Other long term (current) drug therapy; Z95.5 Presence of coronary angioplasty implant and graft; D50.9 Iron deficiency anemia, unspecified; Z88.8 Allergy status to other drugs, medicaments and biological substances; K57.90 Diverticulosis of intestine, part unspecified, without perforation or abscess without bleeding
CPT/HCPCS: 36415; 74177; 80048; 80053; 80307; 81001; 82140; 82274; 83690; 83735; 83880; 84100; 84484; 85025; 85610; 85730; 86850; 86900; 86901; 93005; 96374; C9113; G0378; G0379; G0480; J0744; J3010; Q9967; 99285-25; Q0163

== ENCOUNTER 2021-03-20 08:07 | Outpatient (CLI) | payer MEDICARE, OTHER ==
[~2021-03-20] VITALS: Ht 185.4 cm; Wt 89.0 kg
[2021-03-20] MEDS ORDERED: POTA-121 PO (08:32)
[2021-03-20] MEDS ORDERED: TRIA80OI TP (08:32)
[2021-03-20] MEDS ORDERED: FURO40TA4 PO (08:32)
[2021-03-20] MEDS ORDERED: BETA15CR5 TP (08:32)
[2021-03-20 08:40] VITALS: BP 171/85
[2021-03-20 09:08] LABS: HEMATOCRIT 42.1 % (39.0-53.0); HEMOGLOBIN 13.8 g/dL (13.0-17.5); RED BLOOD COUNT 4.72 x10^6/uL (4.30-5.70); RED CELL DISTRIBUTION WIDTH 15.7 % (11.5-14.5); WHITE BLOOD COUNT 6.8 x10^3/uL (4.0-11.0)
[2021-03-20] MEDS ORDERED: LIDOCAINE WITH 8.4% SOD BICARB 3 ML DISP.SYRIN. ONE (09:10)
[2021-03-20 09:18] LABS: PROTHROMBIN TIME PATIENT 12.6 SEC (11.7-14.0)
[2021-03-20 09:20] LABS: CALCIUM 8.5 mg/dL (8.5-10.1); CREATININE 1.1 mg/dL (0.7-1.3); GFR 64.9; POTASSIUM 3.9 mmol/L (3.5-5.1)
[2021-03-20 09:38] VITALS: BP 159/76
[2021-03-20] MEDS ORDERED: LIDOCAINE WITH 8.4% SOD BICARB 3 ML DISP.SYRIN. INJ ONE (09:45)
[2021-03-20 09:48] VITALS: BP 154/70
[2021-03-20 10:04] VITALS: BP 141/76
[2021-03-20 10:19] VITALS: BP 140/79
--- NOTE | 2021-03-20 10:29 | NUR ---
Patient's VS stable. No bleeding at access site on neck. Instructions provided on site care. Verbalized understanding-- advised patient to continue taking all medications. Patient taken to private vehicle. Driving self home.
[2021-03-20 10:31] VITALS: BP 161/86
--- NOTE | 2021-03-20 11:58 | RAD ---
Ultrasound-guided biopsy, left parotid mass 03/20/2021 INDICATION: Left parotid mass Consent: The procedure was explained in its entirety to the patient or the patients designated repres entative by a member of the treatment team, including a discussion of the risks, benefits and commonl y accepted alternatives to the procedure, as well as the expected consequences of no therapy whatsoev er. Discussion of the risks included, but was not limited to, those that are most frequent and thos e that are rare but possibly severe or life-threatening, as well as the possibility of unforeseen com plications. Discussion: Timeout procedure was performed. The left neck and face was prepped and draped using ster ile barrier technique. 1% lidocaine was administered for local anesthesia. Ultrasound evaluation demo nstrates a hypoechoic, solid masses extending from the left parotid gland inferiorly. Fine-needle asp iration was performed in 3 passes through the mass. 2 times core biopsy was obtained with an 18-gauge needle. Manual pressure was held. Repeat ultrasound demonstrates no immediate complication. Sterile dressing was applied. IMPRESSION: Ultrasound-guided biopsy, left parotid mass Electronically signed by: Marcial Yun MD (03/20/2021 11:55 AM) [id number]
== END 2021-03-20 10:30 | disposition home or self-care (01) ==
LOC: INTRAD 08:07
PROVIDERS: ATTEND Otolaryngology
DX: D11.0 Benign neoplasm of parotid gland (principal); C85.11 Unspecified B-cell lymphoma, lymph nodes of head, face, and neck; I50.9 Heart failure, unspecified; J45.909 Unspecified asthma, uncomplicated; I25.10 Atherosclerotic heart disease of native coronary artery without angina pectoris; Z79.82 Long term (current) use of aspirin; Z79.899 Other long term (current) drug therapy; Z87.891 Personal history of nicotine dependence; Z98.890 Other specified postprocedural states; Z72.89 Other problems related to lifestyle; Z88.8 Allergy status to other drugs, medicaments and biological substances
CPT/HCPCS: 10005; 36415; 38505; 76942; 80048; 85027; 85610; 88173; 88305; 88307; 88341; 88342; 88360; J3490

== ENCOUNTER → 2021-04-03 | Outpatient (CLI) | payer MEDICARE, OTHER ==
[2021-03-20 10:31] VITALS: BP 161/86
[~2021-04-03] MED LIST changes: +ACET325T9 PO; +BETA15CR5 TP; +FURO40TA4 PO; +MUPI22OI2 TP; +OXYC5CAP PO; +POTA-121 PO; +TRIA80OI TP
--- NOTE | 2021-04-03 17:14 | RAD ---
MR#: [id number] Date of Study: 04/03/2021 Ordering Physician: PHAN KUMAR, Referring Physician: PHAN KUMAR, Tech: Rocky Durbin MBA, RDMS, RVT, RDCS, RTR APPROVED REPORT Patient Location : OUT-PATIENT Indications Lower Extremity Edema : Bilateral Greater Saphenous Veins (GSV) Significant venous relux noted in the RIGHT GSV at the following levels : Superficial Femoral Junctio n, Proximal Thigh, Mid Thigh, Distal Thigh, Proximal Calf, Mid Calf, Distal Calf Significant venous relux noted in the LEFT GSV at the following levels : Superficial Femoral Junction , Proximal Thigh, Mid Thigh, Distal Thigh, Proximal Calf, Mid Calf, Distal Calf Lesser Saphenous Veins (LSV) Significant venous reflux is noted in the Bilateral LSV. Findings Grayscale images of saphenofemoral junctions and superficial veins of both lower extremities were thai ssly unremarkable without any evidence of thrombus. Spectral waveform and color duplex analysis was performed. There was significant reflux noted in bila teral greater and lesser saphenous veins. The right greater saphenous vein measured 5.2 mm at the saphenofemoral junction and showed significan t reflux of 3.5 seconds. Significant reflux was noted in right greater saphenous vein in proximal, mi d, distal thigh segments and also at the level of calf. The left greater saphenous vein measured 6.1 mm at the saphenofemoral junction and showed significant reflux of 3.3 seconds. Significant reflux wa s also noted in the left greater saphenous vein in the proximal, mid, distal thigh segments and also at the calf level. The right lesser saphenous vein measured 2.1 mm at the saphenopopliteal junction and showed significa nt reflux of 2.3 seconds. The left lesser saphenous vein measured 1.9 mm at the saphenopopliteal junc tion and showed significant reflux of 1.9 seconds. Critical Notification Critical Value: No <Conclusion> Significant venous reflux was noted in bilateral greater and lesser saphenous veins. Signed by : Phan Kumar, Electronically Approved : 04/03/2021 17:14:21
== END ==
LOC: US 12:11
PROVIDERS: ATTEND Internal Medicine Cardiovascular Disease
DX: I87.2 Venous insufficiency (chronic) (peripheral) (principal); R22.43 Localized swelling, mass and lump, lower limb, bilateral
CPT/HCPCS: 93970

== ENCOUNTER → 2021-04-03 | Outpatient (CLI) | payer MEDICARE, OTHER ==
[2021-03-20 10:31] VITALS: BP 161/86
[2021-04-03] MEDS: IOHEXOL 300 MG/ML 100ML VIAL. IV ONE (12:34)
--- NOTE | 2021-04-03 13:49 | RAD ---
CT NECK SOFT TISSUE WITH IV CONTRAST History: Mass. Comparison: CT neck 10/10/2020 Technique: CT of the neck with intravenous contrast. Findings: Mucosa: No mass in the nasal cavity, nasopharynx, oral cavity, oropharynx, larynx, hypopharynx, or pr oximal trachea/esophagus. Oral cavity is obscured by dental artifact. Glands: Redemonstrated lobular mass/adjacent masses at the inferior aspect of the left parotid gland, with largest component measuring 2.7 x 2.8 cm, enlarged from September comparison. The right parotid, ross ateral submandibular and thyroid gland are unremarkable. Nodes: Inferior left parotid lobe lobulated mass with adjacent masses favored to represent abnormal l ymph nodes. Interval enlargement of a now 6 mm mass superficial to the dominant lesion, likely worsen ing adenopathy. Vessels: Vascular structures are patent. No carotid space mass. Carotid bulb calcifications about si gnificant stenosis. Bones: Degenerative changes of the cervical spine disc and facet. No aggressive osseous lesion. Other: No suspicious lesion in the lung apices. Impression: 1. Enlarging mass at the inferior aspect of the left parotid gland with adjacent satellite nodules/a denopathy. Finding may represent primary parotid lesion versus multiple adjacent abnormal lymph nodes in the setting of lymphoma or metastatic disease to the left cervical lymph nodes. Correlate with cy tology results from prior biopsy. ------ Exposure: One or more of the following individualized dose reduction techniques were utilized for thi s examination: 1. Automated exposure control 2. Adjustment of the mA and/or kV according to patient size 3. Use of iterative reconstruction technique. Electronically signed by: Srinivas Norris MD (04/03/2021 1:47 PM) [facility]
== END ==
LOC: CT 12:23
PROVIDERS: ATTEND Otolaryngology
DX: R22.1 Localized swelling, mass and lump, neck (principal); M47.812 Spondylosis without myelopathy or radiculopathy, cervical region
CPT/HCPCS: 70491; Q9967

== ENCOUNTER 2021-04-04 07:17 | Day surgery (SDC) | payer MEDICARE, OTHER ==
[~2021-04-04] VITALS: Ht 188 cm; Wt 90.4 kg
[~2021-04-04 07:17] MED LIST changes: -ACET325T9 PO; +HYDROmorphone 2 MG/ML VIAL IVP PRN; +IV RINGERS,LACTATED 1000ML 1,000 ML IV SCH; +MORPHINE SULFATE 2 MG/ML INJ. IVP PRN; -MUPI22OI2 TP; -OXYC5CAP PO; +PROCHLORPERAZINE 10 MG/2 ML VIAL. IVP PRN; +fentaNYL PF VIAL 100 MCG/2 ML VIAL IVP PRN
[2021-04-04 07:44] VITALS: BP 163/90
[2021-04-04] MEDS ORDERED: THIAMINE IM 200 MG/2 ML VIAL. IM ONE (08:00)
[2021-04-04] MEDS ORDERED: BUPIVACAINE-EPI 0.5% 30 ML VIAL KIT. ONE (08:48)
[2021-04-04] MEDS ORDERED: ONDANSETRON PF 4 MG/2 ML VIAL. ONE (09:02)
[2021-04-04] MEDS ORDERED: LIDOCAINE 2% PF 5 ML VIAL. ONE (09:02)
[2021-04-04] MEDS ORDERED: DEXAMETHASONE SOD PHOS 4 MG/ML VIAL ONE (09:02)
[2021-04-04] MEDS ORDERED: SEVOFLURANE 16 TO 30 MINUTES. IH ONE (09:02)
[2021-04-04] MEDS ORDERED: fentaNYL PF VIAL 100 MCG/2 ML VIAL ONE (09:02)
[2021-04-04] MEDS ORDERED: PROPOFOL 10 MG/ML (20ML) VIAL. IV ONE (09:02)
[2021-04-04] MEDS ORDERED: SURGICEL HEMOSTAT 4X8 EACH. ONE (09:41)
[2021-04-04] MEDS ORDERED: NEOMY/BACITR/POLYMYXIN OINT PACKET. TP ONE (09:45)
--- NOTE | 2021-04-04 09:54 | PDOC4 ---
IMMEDIATE POST OP NOTE Date: Apr 04, 2021 Pre-Op Diagnosis neck mass, concerning for lymphoma Post-Op Diagnosis same as above Procedure Performed excisional biopsy of left neck mass Surgeon Dr. Daniella Miller Melter Supervisor [employer] Maria Del Carmen Keen NP Anesthesiologist Dr. Ortega Castaneda Anesthesia Type: General Blood Loss <5mL Specimens Obtained left neck mass Findings 1. Large 5cm neck mass in left level 2/3 neck Complications none Operative Note Dictation #[id number] DANIELLA MILLER MD Apr 04, 2021 09:54
[2021-04-04] MEDS ORDERED: MUPI22OI2 TP (09:58)
[2021-04-04] MEDS ORDERED: OXYC5CAP PO (09:58)
[2021-04-04] MEDS ORDERED: ACET325T9 PO (09:58)
[2021-04-04] MEDS ORDERED: ACETAMINOPHEN 325 MG TABLET. PO PRN (10:15)
[2021-04-04] MEDS ORDERED: oxyCODONE IR 5 MG TABLET PO ONE (10:15)
--- NOTE | 2021-04-04 10:42 | OP ---
DATE OF SURGERY: 04/04/2021 PREOPERATIVE DIAGNOSIS: Neck mass concerning for lymphoma. POSTOPERATIVE DIAGNOSIS: Neck mass concerning for lymphoma. PROCEDURE PERFORMED: Excisional biopsy of left neck mass. SURGEON: Daniella Miller MD. HOSPITAL AIDES [employer] ASSISTANTS TEACHER: Maria Del Carmen Mills, nurse practitioner. ANESTHESIA: General endotracheal anesthesia. ANESTHESIOLOGIST: Ortega Castaneda MD. INDICATIONS FOR SURGERY: The patient is a 76-year-old male who presented to the ENT clinic with a left enlarging neck mass. This has been fluctuating in size for the past several years. Fine needle aspiration was performed, which was concerning for B-cell lymphoma. The decision was made for the patient to undergo the above procedure after the risks, benefits and alternatives of surgery were thoroughly discussed with the patient and informed consent was obtained. INTRAOPERATIVE FINDINGS: A large 5 cm neck mass in the left level 2, 3 neck that was just under the platysmal layer and hypervascular in nature. SPECIMEN: Left neck mass sent fresh per lymphoma protocol to Pathology. ESTIMATED BLOOD LOSS: Less than 5 mL DESCRIPTION OF THE PROCEDURE: The patient was brought back to the recovery room per anesthesia and intubated in a standard fashion. Left neck was then prepped and draped in standard fashion. A planned 4 cm incision was made in the lateral neck just superficial to the large neck mass that was present, it was made 2 fingerbreadths below the mandibular angle. It was injected with a subcutaneous injection of 0.25% Marcaine with 1:100,000 epinephrine for postoperative analgesia. A 15 blade was then used to cut through the skin, subcutaneous and platysmal layers. Bovie electrocautery was used to obtain hemostasis. I then dissected down directly on the neck mass, which was very prominent and superficial in nature. Once the mass was isolated, it did have lymphoma appearance. I took out a 2 x 2 cm piece of the mass using a 15 blade and sent this for permanent pathology. A combination of bipolar electrocautery and Bovie electrocautery was then used to obtain hemostasis and the residual mass that was left behind. Surgicel was also placed within the surgical bed. The platysma and deep dermal layers were closed with buried interrupted sutures of 4-0 Vicryl and a running horizontal mattress suture of 5-0 Prolene was used to close the skin. Antibiotic ointment was placed along the incision. The patient was turned back over to anesthesia and extubated without complication. All sponge and needle counts were correct at the end of the case. COMPLICATIONS: None. DISPOSITION: Stable and transferred to recovery room. PATTI/DAVIDE DR: Katt TID: [id number] MTDD
[2021-04-04 10:50] VITALS: BP 130/73
--- NOTE | 2021-04-10 13:21 | PATHOLOGY ---
[facility] Accession Number: [id number] . 01 Material submitted: . neck - LEFT NECK MASS-SENT FRESH. Modifiers: left . 01 Clinical history: . LEFT NECK MASS EXCISION LYMPHOMA PROTOCOL . 02 Frozen section diagnosis: . LYMPHOMA PROTOCOL: The specimen is received fresh for lymphoma protocol and is designated "left neck mass". The specimen consists of a nodular segment of glistening pink-díaz tissue measuring up to 1.1 x 0.9 x 0.8 cm. The specimen is sectioned and reveals a pinkish díaz fleshy cut surface. A patient admitting representative portion of the specimen is submitted in RPMI for flow cytometric analysis. The remainder of the biopsy is submitted in formalin for routine microscopy as A1. (JPM:hector; 04/04/2021) . Lymphoma protocol is performed at [facility], [address] [place] [id number] [place] [address]/[facility] . 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 SEE COMMENT. (JPM:hernando; 04/07/2021) [facility] 04/07/2021 1433 Local . 02 Comment: Sections of the left neck mass biopsy show extensive replacement of lymph node by a proliferation of atypical large lymphoid cells. The atypical cells are present in sheets. The atypical cells have a high N/C ratio, and possess enlarged, rounded to slightly irregular lobulated nuclei containing one or more nucleoli. Mitotic figures are present. There is focal coagulative tumor necrosis. There is a focal small remnant of uninvolved lymph node, which has a few lymphoid follicles containing germinal centers. . A portion of the specimen is submitted for flow cytometric analysis and has a viability of 93.3%. This shows an abnormal large B-cell population comprising 25% of total cells which express CD19, CD20, and CD23 and show no detectable surface or cytoplasmic light chain expression. These large B-cells are CD10 and CD5 negative. T-cells comprise 72% of lymphoid cells and show a CD4/CD8 ratio of 6.8. NK cells comprise 2% of lymphoid cells. Small B-cells comprise 12% of lymphoid cells and are polyclonal. . To confirm flow cytometric findings and characterize the target cells in a tissue architectural context, a panel of immunoperoxidase stains is obtained on A1 and yields the following results: . CD20: Atypical large lymphoid cells positive PAX5: Atypical large lymphoid cells positive CD3: Atypical large lymphoid cells negative; admixed small T-lymphocytes positive CD5: Atypical large lymphoid cells negative; admixed small T-lymphocytes positive CD10: Atypical large lymphoid cells negative BCL2: Atypical large lymphoid cells negative BCL6: Atypical large lymphoid cells positive CD23: Atypical large lymphoid cells positive MUM1: Atypical large lymphoid cells negative CYCLIN D1: Atypical large lymphoid cells negative CD30: Atypical large lymphoid cells negative ALK-1: Atypical large lymphoid cells negative Ki-67: Atypical large lymphoid cells show high proliferation index of approximately 60-70%. . 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 The case is also examined by Dr. Cristina, hematopathologist, who concurs with the diagnosis. The results are reported to Dr. Miller office on 04/10/21 at 9:45 AM. . . . . . (JPM:matcher/hector/db; 04/07/2021) . Special stains performed: Immunoperoxidase stains on A1 for CD20, PAX5, CD3, CD5, CD10, BCL2, BCL6, CD23, MUM1, cyclin D1, CD30, ALK1 and Ki-67 . 02 Electronically signed: . Ha Esquivel MD, Pathologist NPI- [id number] . 01 Gross description: . SEE FROZEN SECTION FOR GROSS DESCRIPTION /QTP 04/07/2021 0656 Local . 02 Pathologist provided ICD-10: C83.31 . 02 CPT . 288577, G05251, S54262, 998106 Specimen Comment: A courtesy copy of this report has been sent to [phone] Specimen Comment: Report sent to Performed at: [address] [place] [address] [address]vd [address], [place], [place] [id number] MD Jah Farah MD Phone: [phone] Performed at: [address] [id number] MD Ha Esquivel MD Phone: [phone]
--- NOTE | 2021-04-15 11:16 | PDOC1 ---
History and Physical Date of Admission Date of Admission DATE: 04/04/2021 TIME: 08:00 Identification/Chief Complaint Chief Complaint left neck mass Source Source: Patient History of Present Illness History of Present Illness 76 year old male presents for surgery for further evaluation of mass of neck. CT of neck with contrast performed on 10/10/20 showed "a mass involving the inferior superficial parotid gland which may represent an intraparotid lymph node as may be seen with lymphoma versus benign or malignant parotid neoplasm. There is an adjacent either contiguous or separate soft tissue mass which could represent an enlarged lymph node immediately inferior to the left parotid gland. He is heavy smoker. We discussed differential diagnosis including benign vs malignany parotid lymph node, reactive lymphadenopathy, metastatic cancer and lymphoma. Patient underwent FNA of left neck mass in clinic which was inconclusive. He recently underwent ultraound guided FNA of left neck mass-- which was concerning for lymphoma. Patient returns for surgical biopsy today. Past Medical History Cardiovascular: No pertinent hx, CAD (s/p stent fall 2020) Pulmonary: No pertinent hx, COPD GI: Other Psych: No pertinent hx Rheumatologic: No pertinent hx Renal/: No pertinent hx Past Surgical History Past Surgical History: Other (cataract surgery) Family History Family History: No Significant Social History Smoke: 1 pack per day ALCOHOL: heavy Drugs: None Current Medications Current Medications Current Medications Fentanyl Citrate (Fentanyl 2ml Vial) 25 mcg PRN Q5MIN PRN IVP MILD PAIN 1-3; Start 04/04/21 at 06:00; Stop 04/04/21 at 11:31; Status DC Fentanyl Citrate (Fentanyl 2ml Vial) 50 mcg PRN Q5MIN PRN IVP MODERATE PAIN 4- 6; Start 04/04/21 at 06:00; Stop 04/04/21 at 11:31; Status DC Morphine Sulfate (Morphine Sulfate) 1 mg PRN Q10MIN PRN IVP SEVERE PAIN 7-10; Start 04/04/21 at 06:00; Stop 04/04/21 at 11:31; Status DC Ringer's Solution 1,000 ml @ 30 mls/hr Q24H IV Last administered on 04/04/21at 07:54; Start 04/04/21 at 06:00; Stop 04/04/21 at 11:31; Status DC Hydromorphone HCl (Dilaudid) 0.5 mg PRN Q10MIN PRN IVP SEVERE PAIN 7-10, 2nd CHOICE; Start 04/04/21 at 06:00; Stop 04/04/21 at 11:31; Status DC Prochlorperazine Edisylate (Compazine) 5 mg PACU PRN PRN IVP NAUSEA, MRX1; Start 04/04/21 at 06:00; Stop 04/04/21 at 11:31; Status DC Thiamine HCl (Thiamine Im) 100 mg 1X ONCE IM Last administered on 04/04/21at 09:20; Start 04/04/21 at 08:00; Stop 04/04/21 at 08:01; Status DC Bupivacaine HCl/ Epinephrine Bitart (Sensorcain-Epi 0.5% Kit) 30 ml STK-MED ONCE .ROUTE Last administered on 04/04/21at 09:49; Start 04/04/21 at 08:48; Stop 04/04/21 at 08:48; Status DC Propofol (Diprivan) 200 mg STK-MED ONCE IV ; Start 04/04/21 at 09:02; Stop 04/04/21 at 09:02; Status DC Dexamethasone Sodium Phosphate (Decadron) 4 mg STK-MED ONCE .ROUTE ; Start 04/04/21 at 09:02; Stop 04/04/21 at 09:02; Status DC Lidocaine HCl (Lidocaine Pf 2% Vial) 5 ml STK-MED ONCE .ROUTE ; Start 04/04/21 at 09:02; Stop 04/04/21 at 09:02; Status DC Ondansetron HCl (Zofran) 4 mg STK-MED ONCE .ROUTE ; Start 04/04/21 at 09:02; Stop 04/04/21 at 09:02; Status DC Sevoflurane (Ultane) 15 ml STK-MED ONCE IH ; Start 04/04/21 at 09:02; Stop 04/04/21 at 09:02; Status DC Fentanyl Citrate (Fentanyl 2ml Vial) 100 mcg STK-MED ONCE .ROUTE ; Start 04/04/21 at 09:02; Stop 04/04/21 at 09:03; Status DC Cellulose (Surgicel Hemostat 4x8) 1 each STK-MED ONCE .ROUTE Last administered on 04/04/21at 09:49; Start 04/04/21 at 09:41; Stop 04/04/21 at 09:42; Status DC Neomycin/ Polymyxin/ Bacitracin (Triple Antibiotic Ointment) 1 pkt STK-MED ONCE TP ; Start 04/04/21 at 09:45; Stop 04/04/21 at 09:45; Status DC Oxycodone HCl (Roxicodone) 5 mg 1X ONCE PO ; Start 04/04/21 at 10:15; Stop 04/04/21 at 10:16; Status DC Acetaminophen (Tylenol) 325 mg 1X PRN PO MILD PAIN / TEMP > 100.3'F; Start 04/04/21 at 10:15; Stop 04/04/21 at 11:31; Status DC Active Scripts Active Mupirocin Ointment (Mupirocin) 22 Gm Oint...g. 1 Eric TP TID 14 Days Oxycodone Hcl 5 Mg Capsule 5 Mg PO PRN Q6HRS PRN 14 Days Tylenol (Acetaminophen) 325 Mg Tablet 325 Mg PO Q4-6HRS PRN 30 Days Aspirin Ec (Aspirin) 81 Mg Tablet.dr 1 Tab PO DAILY 30 Days Atorvastatin Calcium 40 Mg Tablet 40 Mg PO QHS 30 Days Metoprolol Tartrate 25 Mg Tablet 12.5 Mg PO BID 30 Days Clopidogrel (Clopidogrel Bisulfate) 75 Mg Tablet 75 Mg PO DAILYWBKFT 30 Days Reported Betamethasone Dipropionate 15 Gm Cream..g. 1 Eric TP BID Furosemide 40 Mg Tablet 40 Mg PO DAILY Triamcinolone Acetonide 80 Gm Oint...g. 1 Eric TP BID Klor-Con M20 (Potassium Chloride) 20 Meq Tab.er.prt 20 Meq PO DAILY Iron (Ferrous Sulfate) 325 Mg Tablet 1 Tab PO DAILY 30 Days Allergies Allergies: Coded Allergies: ibuprofen (Verified Allergy, Intermediate, 04/04/21) Physical Exam General: Alert, Oriented X3, Cooperative HEENT: EOMI, Mucous membr. moist/pink, Other (6 cm left level 2/3 neck mass ) Lungs: Clear to auscultation Extremities: No clubbing Neuro: Normal gait, Normal speech, Cranial nerves 3-12 NL Psych/Mental Status: Mental status NL, Mood NL VTE Prophylaxis Ordered VTE Prophylaxis Devices: Yes VTE Pharmacological Prophylaxi: Yes Assessment/Plan Assessment/Plan 76 year old male with left neck mass that continues to enlarge. Recent FNA concerning for lymphoma - To OR today for excisional biopsy of left neck mass. Informed consent obtained today. Justifications for Admission Other Justification CARINA Hernandez MD Apr 15, 2021 11:16
== END 2021-04-04 11:27 | disposition home or self-care (01) ==
LOC: SURG 07:17
PROVIDERS: ATTEND Otolaryngology
DX: R22.1 Localized swelling, mass and lump, neck (principal); C83.31 Diffuse large B-cell lymphoma, lymph nodes of head, face, and neck; I50.9 Heart failure, unspecified; I25.10 Atherosclerotic heart disease of native coronary artery without angina pectoris; J45.909 Unspecified asthma, uncomplicated; Z87.891 Personal history of nicotine dependence; Z79.82 Long term (current) use of aspirin; Z79.899 Other long term (current) drug therapy; Z98.890 Other specified postprocedural states; Z88.8 Allergy status to other drugs, medicaments and biological substances; Z72.89 Other problems related to lifestyle
CPT/HCPCS: 11422; 88184; 88185; A4215; A4364; A4930; J1100; J2405; J2704; J3010; J3411; A4322; A4657

== ENCOUNTER → 2021-05-02 | Outpatient (CLI) | payer MEDICARE, OTHER ==
[2021-04-04 10:50] VITALS: BP 130/73
[~2021-05-02] MED LIST changes: +ACET325T9 PO; -HYDROmorphone 2 MG/ML VIAL IVP PRN; -IV RINGERS,LACTATED 1000ML 1,000 ML IV SCH; -MORPHINE SULFATE 2 MG/ML INJ. IVP PRN; +MUPI22OI2 TP; +OXYC5CAP PO; -PROCHLORPERAZINE 10 MG/2 ML VIAL. IVP PRN; -fentaNYL PF VIAL 100 MCG/2 ML VIAL IVP PRN
--- NOTE | 2021-05-02 13:21 | RAD ---
EXAM: Dual modality PET-CT Scan DATE: 05/02/2021 RADIOPHARMACEUTICAL: 13 mCi F-18 fluorodeoxyglucose (FDG) IV. CLINICAL HISTORY: Lymphoma. COMPARISON: Neck CT dated 04/03/2021. Abdomen and pelvis CT dated 01/05/2021. Chest CT dated 12/21/2020. TECHNIQUE: Approximately 45 minutes after tracer administration, routine, attenuation-corrected Posit emma Emission Tomography (PET) images were obtained from the level of the vertex of the skull through the level of the mid thighs. Tomographic reconstructions are reviewed in coronal, transaxial and sagi ttal planes. Non-contrast CT imaging was performed for attenuation correction and localization purpo ses only. These images do not constitute a diagnostic-quality CT examination and were not used to di agnose disease independently of the PET images. The blood glucose level was 113 mg/dL at the time of FDG administration. *One or more of the following individualized dose reduction techniques were utilized for this examina tion: 1. Automated exposure control. 2. Adjustment of the mA and/or kV according to patient size. 3. Use of iterative reconstruction technique. FINDINGS: There is intense increased radiotracer activity within SUV of 19.4 associated with a 5.0 cm soft tissue mass within the left neck centered within the cervical chain and extending to the inferi or aspect of the left parotid gland. There is mild radiotracer activity within the adjacent left subm andibular gland and submandibular lymph nodes within SUV of 3.0. This is nonspecific and fairly symme tric compared to the contralateral mandibular gland and lymph nodes. No additional abnormal radiotrac er activity is seen to suggest malignancy. There is degenerative radiotracer activity within the right greater than left acromioclavicular joint s. There is physiologic activity within the bowel and renal collecting system. The CT portion of the exam demonstrates a soft tissue mass within the left cervical chain extending t o the inferior aspect of the left parotid gland, measuring approximately 5.0 cm in maximum cortical d imension and consistent with a pathologically enlarged lymph node or lymph node conglomerate. There i s a 4 mm lymph node within the anterior left parotid gland and 2 mm lymph node within the anterior ri ght parotid gland. There are nonspecific bilateral cervical chain lymph nodes. These are not clearly pathologically enlarged. There is also a slight asymmetric 7 mm left posterior inferior cervical jennifer n lymph node which remains within physiologic limits. The heart is normal in size. The aorta is normal in caliber. No pathologically enlarged mediastinal o r hilar lymph node is seen. No pathologically enlarged axillary lymph node is seen. There is calcifie d atherosclerotic plaque involving the coronary arteries. There is mild gynecomastia. There is no pne umothorax or pleural effusion. There is no infiltrate or suspicious pulmonary nodule. There is mild r ight lower lobe bronchial wall thickening. There is lingular and medial right middle lobe atelectasis or scarring. There is basilar atelectasis. There is hepatic surface nodularity and a prominent left hepatic lobe. This can be seen with cirrhosi s. No focal hepatic lesion is seen. The gallbladder is unremarkable. There is a calcification within the pancreatic head, possibly due to an adjacent vessel or sequela of chronic pancreatitis. The splee n and adrenal glands are unremarkable. The kidneys are unremarkable. There is no appendicitis. There is no bowel obstruction. The urinary bladder is distended. The prostate is mildly enlarged. There is an infrarenal abdominal aortic aneurysm measuring 3.0 cm. There is aortobiiliac atherosclero sis. There is a suspected small lipoma within the proximal duodenum. There are nonspecific retroperit serra lymph nodes, the largest of which measures 11 mm within the right aortocaval distribution infer ior to the renal veins. There are nonspecific inguinal lymph nodes. The largest of these measures 1.8 cm on the right. These lymph nodes are all stable and not associated with significant increased radi otracer activity. There are degenerative changes involving the spine. There is no acute or suspicious osseous finding. IMPRESSION: 1. 5.0 cm radiotracer avid mass within SUV of 19.4 within the left neck centered along the cervical c viktor and extending to the inferior parotid gland, consistent with a malignant lymph node or lymph nod e conglomerate. 2. Mild radiotracer activity within the and mandibular glands and surrounding lymph nodes, not signif icantly greater than the blood pool to suggest malignancy. These are likely physiologic. There is no convincing additional evidence of malignancy. 3. Suspected hepatic cirrhosis 4. 3.0 cm abdominal aortic aneurysm. 5. Mild right lower lobe bronchial wall thickening, likely due to sequela of bronchitis. 6. Prostatomegaly. Electronically signed by: Sandra Barnhart MD (05/02/2021 1:18 PM) [place] [id number]
== END ==
LOC: PETSC 09:55
PROVIDERS: ATTEND Otolaryngology
DX: C83.31 Diffuse large B-cell lymphoma, lymph nodes of head, face, and neck (principal); J98.11 Atelectasis; N32.89 Other specified disorders of bladder; I71.4 Abdominal aortic aneurysm, without rupture; I25.10 Atherosclerotic heart disease of native coronary artery without angina pectoris
CPT/HCPCS: 78815; A9552

== ENCOUNTER → 2021-05-19 | Outpatient (CLI) | payer MEDICARE, OTHER ==
[2021-05-19 11:17] LABS: BASO # 0.1 x10^3/uL (0.0-0.2); BASO % 1 % (0-3); EOS % 13 % (0-3); HEMATOCRIT 40.4 % (39.0-53.0); HEMOGLOBIN 13.7 g/dL (13.0-17.5); LYMPH # 1.8 x10^3/uL (1.0-4.8); LYMPH % 24 % (24-48); MEAN CORPUSCULAR HEMOGLOBIN 31 pg (25-35); MEAN CORPUSCULAR HGB CONC 34 g/dL (31-37); MEAN CORPUSCULAR VOLUME 92 fL (79-100); MONO # 0.9 x10^3/uL (0.0-1.1); MONO % 12 % (0-9); NEUT # 3.9 x10^3/uL (1.8-7.7); NEUT % 50 % (31-73); PLATELET COUNT 248 x10^3/uL (140-400); RED CELL DISTRIBUTION WIDTH 15.4 % (11.5-14.5); WHITE BLOOD COUNT 7.8 x10^3/uL (4.0-11.0)
[2021-05-19 11:25] LABS: CALCIUM 8.3 mg/dL (8.5-10.1); CREATININE 1.2 mg/dL (0.7-1.3); GFR 58.7; POTASSIUM 3.9 mmol/L (3.5-5.1)
[2021-05-19 11:27] LABS: ALBUMIN 3.6 g/dL (3.4-5.0); ALBUMIN/GLOBULIN RATIO 0.9 (1.0-1.7); TOTAL BILIRUBIN 0.3 mg/dL (0.2-1.0); TOTAL PROTEIN 7.6 g/dL (6.4-8.2); URIC ACID 7.5 mg/dL (3.5-7.2)
== END ==
LOC: ONCLAB 10:05
PROVIDERS: ATTEND Internal Medicine Hematology & Oncology
DX: C83.90 Non-follicular (diffuse) lymphoma, unspecified, unspecified site (principal)
CPT/HCPCS: 36415; 80053; 83615; 84550; 85025; 86703; 86704; 86803; 87340

== ENCOUNTER 2021-06-04 07:17 | Outpatient (CLI) | payer MEDICARE, OTHER ==
[~2021-06-04] VITALS: Ht 185.4 cm; Wt 94.5 kg
[2021-06-04 07:43] VITALS: BP 175/105
[2021-06-04] MEDS ORDERED: LEVO5TAB29 PO (07:54)
[2021-06-04] MEDS ORDERED: LIDOCAINE 1%/EPI 1:100,000 20 ML VIAL. ONE (08:35)
[2021-06-04] MEDS ORDERED: HEPARIN PF 500 UNIT/5 ML DISP.SYRIN. IVP ONE ×2 (08:36→09:30)
[2021-06-04 09:24] VITALS: BP 126/74
[2021-06-04] MEDS ORDERED: LIDOCAINE 1%/EPI 1:100,000 20 ML VIAL. INJ ONE (09:30)
[2021-06-04 09:32] VITALS: BP 142/78
[2021-06-04 09:47] VITALS: BP 135/79
[2021-06-04 10:02] VITALS: BP 144/80
[2021-06-04 10:17] VITALS: BP 139/75
--- NOTE | 2021-06-04 10:31 | NUR ---
Discharge Note: ÁNGEL URIARTE Discharge instructions and discharge home medications reviewed with Patient and a copy given. All questions have been answered and understanding verbalized. The following instructions and handouts were given: implanted port instructions Discontinued lines and drains: Peripheral IV intact. Patient discharged to Home or Self Care with[facility]. Patient walked over to [facility] with no problems, after completion of study patient is able to drive home.
--- NOTE | 2021-06-04 10:39 | RAD ---
PROCEDURE: Fluoroscopically and ultrasound-guided placement of right internal jugular tunnel central venous catheter with port ). Clinical Indication: Chemotherapy access Discussion: The risks and benefits of the procedure were discussed with the patient and/or their artists' booking representative. Informed consent was obtained. The patient was brought to the fluoroscopy suite and placed in supine position. A time out procedure was performed. The right neck and chest were prepped and draped using maximum sterile barrier technique including th e use of: Current guideline approved cutaneous antisepsis, a large sterile sheet to establish a steri le field. Additionally the open developer operator wore a hat, mask, sterile gloves, a sterile gown during the proce dure as well as practiced acceptable hand hygiene prior to placing the port. Ultrasound-guided access: Ultrasound evaluation showed the right jugular vein to be patent and compr essible. 1 % lidocaine with epinephrine was administered to the skin and subcutaneous tissues overlyi ng the right neck and chest. Under direct ultrasound guidance a single wall puncture was made followe d by tract dilation and placement of a sheath. An ultrasound image was saved and sent to PACS. Next, an incision was made in an infraclavicular location and a pocket created. The catheter was ahmet neled between the pocket and the venotomy site. The catheter was advanced through the peel away hart th, under fluoroscopic guidance, such that it's tip was in the mid right atrium. The catheter was con nected to the port reservoir. The port was accessed and found to flush and aspirate normally. The res ervoir was then placed into the subcutaneous pocket. The wound was closed in layers using 4-0 Vicryl suture. Dermabond was applied overlying the wound, and venotomy site. The patient tolerated procedur e without immediate complication. Sedation: Conscious sedation was performed for 30 minutes. Sedation was carried while the patient w as continually monitored by a member of the Radiology nursing staff. Continual cardiopulmonary monit oring was carried out during the procedure. The patient tolerated the procedure well and there were no immediate complications. Fluoroscopy time: 0.2 minutes Dose area product 1 Jeffries centimeter squared Impression: Successful ultrasound and fluoroscopically guided placement of right internal jugular ahmet riky central venous catheter with port Electronically signed by: Marcial Yun MD (06/04/2021 10:37 AM) [id number]
--- NOTE | 2021-06-04 10:39 | RAD ---
PROCEDURE: Fluoroscopically and ultrasound-guided placement of right internal jugular tunnel central venous catheter with port ). Clinical Indication: Chemotherapy access Discussion: The risks and benefits of the procedure were discussed with the patient and/or their residential sales representative. Informed consent was obtained. The patient was brought to the fluoroscopy suite and placed in supine position. A time out procedure was performed. The right neck and chest were prepped and draped using maximum sterile barrier technique including th e use of: Current guideline approved cutaneous antisepsis, a large sterile sheet to establish a steri le field. Additionally the catalytic converter operator wore a hat, mask, sterile gloves, a sterile gown during the proce dure as well as practiced acceptable hand hygiene prior to placing the port. Ultrasound-guided access: Ultrasound evaluation showed the right jugular vein to be patent and compr essible. 1 % lidocaine with epinephrine was administered to the skin and subcutaneous tissues overlyi ng the right neck and chest. Under direct ultrasound guidance a single wall puncture was made followe d by tract dilation and placement of a sheath. An ultrasound image was saved and sent to PACS. Next, an incision was made in an infraclavicular location and a pocket created. The catheter was ahmet neled between the pocket and the venotomy site. The catheter was advanced through the peel away hart th, under fluoroscopic guidance, such that it's tip was in the mid right atrium. The catheter was con nected to the port reservoir. The port was accessed and found to flush and aspirate normally. The res ervoir was then placed into the subcutaneous pocket. The wound was closed in layers using 4-0 Vicryl suture. Dermabond was applied overlying the wound, and venotomy site. The patient tolerated procedur e without immediate complication. Sedation: Conscious sedation was performed for 30 minutes. Sedation was carried while the patient w as continually monitored by a member of the Radiology nursing staff. Continual cardiopulmonary monit oring was carried out during the procedure. The patient tolerated the procedure well and there were no immediate complications. Fluoroscopy time: 0.2 minutes Dose area product 1 Jeffries centimeter squared Impression: Successful ultrasound and fluoroscopically guided placement of right internal jugular ahmet riky central venous catheter with port Electronically signed by: Marcial Yun MD (06/04/2021 10:37 AM) [id number]
--- NOTE | 2021-06-04 17:11 | CARD ---
MR#: [id number] Date of Study: 06/04/2021 Ordering Physician: BRENDA DARLING, Referring Physician: BRENDA DARLING, Tech: Renee Miller [facility] APPROVED REPORT EXAM: Two-dimensional and M-mode echocardiogram with Doppler and color Doppler. Other Information Quality : FairHR: 59bpm Rhythm : NSRTechnically limited study due to body habitus.smoking. INDICATION RISK FACTORS Hypertension 2D DIMENSIONS RVDd4.2 (2.9-3.5cm)Left Atrium(2D)3.7 (1.6-4.0cm) IVSd1.3 (0.7-1.1cm)Aortic Root(2D)3.8 (2.0-3.7cm) LVDd5.3 (3.9-5.9cm)LVOT Diameter2.0 (1.8-2.4cm) PWd1.3 (0.7-1.1cm)LVDs3.7 (2.5-4.0cm) FS (%) 30.0 %SV76.1 ml LVEF(%)56.8 (>50%) Aortic Valve AoV Peak Mynor.128.9cm/sAoV VTI28.1cm AO Peak GR.6.6mmHgLVOT Peak Mynor.89.3cm/s AO Mean GR.4mmHgAVA (VMAX)2.26cm2 Mitral Valve MV E Mocdtskk93.4cm/sMV DECEL [id number] MV A Zbexedfh45.2cm/sE/A Ratio0.8 Pulmonary Valve PV Peak Crejbvna44.6cm/s Tricuspid Valve TR P. Lzutdldx841vf/sTR Peak Gr.24mmHg LEFT VENTRICLE The left ventricle is normal size. There is mild concentric left ventricular hypertrophy. The systoli c function is low normal. EF 50% There is normal LV segmental wall motion. Tissue Doppler imaging rev eals mild left ventricular diastolic dysfunction. RIGHT VENTRICLE The right ventricle is normal size. There is normal right ventricular wall thickness. The right ventr icular systolic function is normal. ATRIA The left atrium size is normal. The right atrium size is normal. The interatrial septum is intact wit h no evidence for an atrial septal defect or patent foramen ovale as noted on 2-D or Doppler imaging. AORTIC VALVE The aortic valve is normal in structure and function. Doppler and Color Flow revealed mild aortic reg urgitation. There is no significant aortic valvular stenosis. MITRAL VALVE The mitral valve is normal in structure and function. There is no evidence of mitral valve prolapse. There is no mitral valve stenosis. Doppler and Color-flow revealed trace mitral regurgitation. TRICUSPID VALVE The tricuspid valve is normal in structure and function. Doppler and Color Flow revealed trace tricus pid regurgitation. Estimated PAP 25-30 mmHG. There is no tricuspid valve stenosis. PULMONIC VALVE Doppler and Color Flow revealed no pulmonic valvular regurgitation. There is no pulmonic valvular miranda nosis. GREAT VESSELS The aortic root is normal in size. The IVC is normal in size and collapses >50% with inspiration. PERICARDIAL EFFUSION There is no evidence of significant pericardial effusion. Critical Notification Critical Value: No <Conclusion> The systolic function is low normal. EF 50% There is normal LV segmental wall motion. Signed by : Telly Lloyd, Electronically Approved : 06/04/2021 17:10:54
== END 2021-06-04 11:15 | disposition home or self-care (01) ==
LOC: INTRAD 07:17
PROVIDERS: ATTEND Internal Medicine Hematology & Oncology
DX: C85.95 Non-Hodgkin lymphoma, unspecified, lymph nodes of inguinal region and lower limb (principal); I11.0 Hypertensive heart disease with heart failure; I50.9 Heart failure, unspecified; I42.9 Cardiomyopathy, unspecified; I25.10 Atherosclerotic heart disease of native coronary artery without angina pectoris; J45.909 Unspecified asthma, uncomplicated; E78.00 Pure hypercholesterolemia, unspecified; I87.2 Venous insufficiency (chronic) (peripheral); D50.9 Iron deficiency anemia, unspecified; I25.2 Old myocardial infarction; Z88.8 Allergy status to other drugs, medicaments and biological substances; Z79.899 Other long term (current) drug therapy; Z79.82 Long term (current) use of aspirin; Z98.41 Cataract extraction status, right eye; Z98.42 Cataract extraction status, left eye; Z95.5 Presence of coronary angioplasty implant and graft; Z87.891 Personal history of nicotine dependence; Z72.89 Other problems related to lifestyle; Z98.890 Other specified postprocedural states
CPT/HCPCS: 36561; 76937; 77001; 93306; C1788; C1892; J0690; J1642; J3490; C8929

== ENCOUNTER → 2021-06-11 | Outpatient (CLI) | payer MEDICARE, OTHER ==
[2021-06-04 10:17] VITALS: BP 139/75
[~2021-06-11] MED LIST changes: +LEVO5TAB29 PO
[2021-06-11 08:45] LABS: BASO # 0.1 x10^3/uL (0.0-0.2); BASO % 1 % (0-3); EOS # 1.3 x10^3/uL (0.0-0.7); EOS % 17 % (0-3); HEMATOCRIT 41.6 % (39.0-53.0); LYMPH # 1.7 x10^3/uL (1.0-4.8); LYMPH % 22 % (24-48); MEAN CORPUSCULAR HEMOGLOBIN 31 pg (25-35); MEAN CORPUSCULAR HGB CONC 34 g/dL (31-37); MEAN CORPUSCULAR VOLUME 93 fL (79-100); MONO # 0.9 x10^3/uL (0.0-1.1); MONO % 11 % (0-9); NEUT # 3.7 x10^3/uL (1.8-7.7); NEUT % 48 % (31-73); PLATELET COUNT 250 x10^3/uL (140-400); RED BLOOD COUNT 4.49 x10^6/uL (4.30-5.70); RED CELL DISTRIBUTION WIDTH 14.8 % (11.5-14.5); WHITE BLOOD COUNT 7.7 x10^3/uL (4.0-11.0)
[2021-06-11 08:52] LABS: CALCIUM 8.2 mg/dL (8.5-10.1); CREATININE 1.2 mg/dL (0.7-1.3); GFR 58.7
[2021-06-11 08:58] LABS: ALBUMIN 3.6 g/dL (3.4-5.0); TOTAL BILIRUBIN 0.3 mg/dL (0.2-1.0); TOTAL PROTEIN 7.3 g/dL (6.4-8.2); URIC ACID 7.7 mg/dL (3.5-7.2)
[2021-06-11 12:18] LABS: % BANDS 1 % (0-9); % BASOS 2 % (0-3); % EOS 16 % (0-5); % LYMPHS 28 % (24-48); % MONOS 18 % (0-10); % SEGS 35 % (35-66); PLT ESTIMATE ADEQUATE (ADEQUATE)
== END ==
LOC: ONCLAB 08:18
PROVIDERS: ATTEND Internal Medicine Hematology & Oncology
DX: C83.90 Non-follicular (diffuse) lymphoma, unspecified, unspecified site (principal)
CPT/HCPCS: 36415; 80053; 83615; 84550; 85007; 85025

== ENCOUNTER → 2021-06-17 | Outpatient (CLI) | payer MEDICARE, OTHER ==
[2021-06-04 10:17] VITALS: BP 139/75
[~2021-06-17] MED LIST changes: +PERFLUTREN PROTEIN-A MICROSPHR 0.22 MG/ML 3 ML VIAL. IV ONE
[2021-06-17 11:30] LABS: BASO % 0 % (0-3); EOS # 0.1 x10^3/uL (0.0-0.7); EOS % 6 % (0-3); HEMATOCRIT 31.1 % (39.0-53.0); HEMOGLOBIN 10.5 g/dL (13.0-17.5); LYMPH # 0.3 x10^3/uL (1.0-4.8); LYMPH % 31 % (24-48); MEAN CORPUSCULAR HEMOGLOBIN 31 pg (25-35); MEAN CORPUSCULAR HGB CONC 34 g/dL (31-37); MEAN CORPUSCULAR VOLUME 91 fL (79-100); MONO % 1 % (0-9); NEUT # 0.7 x10^3/uL (1.8-7.7); NEUT % 62 % (31-73); PLATELET COUNT 37 x10^3/uL (140-400); RED BLOOD COUNT 3.42 x10^6/uL (4.30-5.70); RED CELL DISTRIBUTION WIDTH 13.9 % (11.5-14.5)
[2021-06-17 11:37] LABS: WHITE BLOOD COUNT 1.1 x10^3/uL (4.0-11.0)
[2021-06-17 11:43] LABS: CALCIUM 7.7 mg/dL (8.5-10.1); GFR 72.5; POTASSIUM 3.7 mmol/L (3.5-5.1)
[2021-06-17 11:50] LABS: ALBUMIN 2.9 g/dL (3.4-5.0); TOTAL BILIRUBIN 1.4 mg/dL (0.2-1.0); TOTAL PROTEIN 5.9 g/dL (6.4-8.2); URIC ACID 5.1 mg/dL (3.5-7.2)
[2021-06-17 12:25] LABS: PLT ESTIMATE DECREASED (ADEQUATE)
[2021-06-17 12:33] LABS: BURR CELLS PRESENT
[2021-06-17 12:35] LABS: % ATYL 2 % (0-0); % EOS 6 % (0-5); % LYMPHS 42 % (24-48); % MONOS 2 % (0-10); % SEGS 48 % (35-66)
== END ==
LOC: ONCLAB 11:09
PROVIDERS: ATTEND Internal Medicine Hematology & Oncology
DX: C83.90 Non-follicular (diffuse) lymphoma, unspecified, unspecified site (principal)
CPT/HCPCS: 36415; 80053; 83615; 84550; 85007; 85025; Q9956

== ENCOUNTER → 2021-06-20 | Outpatient (CLI) | payer MEDICARE, OTHER ==
[2021-06-04 10:17] VITALS: BP 139/75
[~2021-06-20] MED LIST changes: -PERFLUTREN PROTEIN-A MICROSPHR 0.22 MG/ML 3 ML VIAL. IV ONE
[2021-06-20 11:24] LABS: BASO % 2 % (0-3); EOS # 0.1 x10^3/uL (0.0-0.7); EOS % 6 % (0-3); HEMOGLOBIN 9.9 g/dL (13.0-17.5); LYMPH # 0.4 x10^3/uL (1.0-4.8); LYMPH % 35 % (24-48); MEAN CORPUSCULAR HEMOGLOBIN 31 pg (25-35); MEAN CORPUSCULAR HGB CONC 33 g/dL (31-37); MEAN CORPUSCULAR VOLUME 93 fL (79-100); MONO # 0.1 x10^3/uL (0.0-1.1); MONO % 10 % (0-9); NEUT # 0.6 x10^3/uL (1.8-7.7); NEUT % 47 % (31-73); PLATELET COUNT 49 x10^3/uL (140-400); RED BLOOD COUNT 3.24 x10^6/uL (4.30-5.70); RED CELL DISTRIBUTION WIDTH 13.9 % (11.5-14.5)
[2021-06-20 11:34] LABS: CALCIUM 8.5 mg/dL (8.5-10.1); CREATININE 1.1 mg/dL (0.7-1.3); GFR 64.9; POTASSIUM 4.2 mmol/L (3.5-5.1)
[2021-06-20 11:37] LABS: WHITE BLOOD COUNT 1.2 x10^3/uL (4.0-11.0)
[2021-06-20 11:42] LABS: ALBUMIN/GLOBULIN RATIO 0.8 (1.0-1.7); TOTAL BILIRUBIN 0.6 mg/dL (0.2-1.0); TOTAL PROTEIN 6.6 g/dL (6.4-8.2)
== END ==
LOC: ONCLAB 10:51
PROVIDERS: ATTEND Physician Assistant
DX: C83.90 Non-follicular (diffuse) lymphoma, unspecified, unspecified site (principal)
CPT/HCPCS: 36415; 80053; 85025

== ENCOUNTER → 2021-06-24 | Outpatient (CLI) | payer MEDICARE, OTHER ==
[2021-06-04 10:17] VITALS: BP 139/75
[2021-06-24 11:53] LABS: BASO % 1 % (0-3); EOS % 1 % (0-3); HEMATOCRIT 31.2 % (39.0-53.0); HEMOGLOBIN 10.2 g/dL (13.0-17.5); LYMPH # 0.7 x10^3/uL (1.0-4.8); LYMPH % 30 % (24-48); MEAN CORPUSCULAR HEMOGLOBIN 31 pg (25-35); MEAN CORPUSCULAR HGB CONC 33 g/dL (31-37); MEAN CORPUSCULAR VOLUME 94 fL (79-100); MONO # 0.4 x10^3/uL (0.0-1.1); MONO % 17 % (0-9); NEUT # 1.3 x10^3/uL (1.8-7.7); NEUT % 51 % (31-73); PLATELET COUNT 351 x10^3/uL (140-400); RED BLOOD COUNT 3.33 x10^6/uL (4.30-5.70); RED CELL DISTRIBUTION WIDTH 14.1 % (11.5-14.5); WHITE BLOOD COUNT 2.5 x10^3/uL (4.0-11.0)
[2021-06-24 11:59] LABS: CREATININE 1.1 mg/dL (0.7-1.3); GFR 64.9; POTASSIUM 4.4 mmol/L (3.5-5.1)
[2021-06-24 12:05] LABS: ALBUMIN 3.1 g/dL (3.4-5.0); ALBUMIN/GLOBULIN RATIO 0.9 (1.0-1.7); TOTAL BILIRUBIN 0.3 mg/dL (0.2-1.0); TOTAL PROTEIN 6.5 g/dL (6.4-8.2)
== END ==
LOC: ONCLAB 11:27
PROVIDERS: ATTEND Internal Medicine Hematology & Oncology
DX: C83.90 Non-follicular (diffuse) lymphoma, unspecified, unspecified site (principal)
CPT/HCPCS: 36415; 80053; 85025

== ENCOUNTER → 2021-07-02 | Outpatient (CLI) | payer MEDICARE, OTHER ==
[2021-06-04 10:17] VITALS: BP 139/75
[2021-07-02 09:25] LABS: BASO # 0.1 x10^3/uL (0.0-0.2); BASO % 2 % (0-3); EOS # 0.1 x10^3/uL (0.0-0.7); EOS % 1 % (0-3); HEMATOCRIT 34.2 % (39.0-53.0); HEMOGLOBIN 11.6 g/dL (13.0-17.5); LYMPH # 1.4 x10^3/uL (1.0-4.8); LYMPH % 25 % (24-48); MEAN CORPUSCULAR HEMOGLOBIN 31 pg (25-35); MEAN CORPUSCULAR HGB CONC 34 g/dL (31-37); MEAN CORPUSCULAR VOLUME 93 fL (79-100); MONO # 1.1 x10^3/uL (0.0-1.1); MONO % 19 % (0-9); NEUT # 3.1 x10^3/uL (1.8-7.7); NEUT % 53 % (31-73); PLATELET COUNT 444 x10^3/uL (140-400); RED BLOOD COUNT 3.69 x10^6/uL (4.30-5.70); RED CELL DISTRIBUTION WIDTH 15.2 % (11.5-14.5); WHITE BLOOD COUNT 5.7 x10^3/uL (4.0-11.0)
[2021-07-02 09:27] LABS: CALCIUM 8.1 mg/dL (8.5-10.1); CREATININE 1.2 mg/dL (0.7-1.3); GFR 58.7; POTASSIUM 3.8 mmol/L (3.5-5.1)
[2021-07-02 09:33] LABS: ALBUMIN 3.2 g/dL (3.4-5.0); ALBUMIN/GLOBULIN RATIO 0.9 (1.0-1.7); TOTAL BILIRUBIN 0.2 mg/dL (0.2-1.0); TOTAL PROTEIN 6.8 g/dL (6.4-8.2); URIC ACID 4.9 mg/dL (3.5-7.2)
[2021-07-02 11:46] LABS: % BANDS 9 % (0-9); % BASOS 3 % (0-3); % EOS 2 % (0-5); % LYMPHS 29 % (24-48); % MONOS 19 % (0-10); % SEGS 38 % (35-66); PLT ESTIMATE INCREASED (ADEQUATE)
== END ==
LOC: ONCLAB 08:57
PROVIDERS: ATTEND Internal Medicine Hematology & Oncology
DX: C83.90 Non-follicular (diffuse) lymphoma, unspecified, unspecified site (principal)
CPT/HCPCS: 36415; 80053; 84550; 85007; 85025

== ENCOUNTER → 2021-07-09 | Outpatient (CLI) | payer MEDICARE, OTHER ==
[2021-07-09 09:20] LABS: BASO % 1 % (0-3); EOS # 0.1 x10^3/uL (0.0-0.7); EOS % 8 % (0-3); HEMATOCRIT 29.8 % (39.0-53.0); HEMOGLOBIN 9.9 g/dL (13.0-17.5); LYMPH # 0.3 x10^3/uL (1.0-4.8); LYMPH % 26 % (24-48); MEAN CORPUSCULAR HEMOGLOBIN 31 pg (25-35); MEAN CORPUSCULAR HGB CONC 33 g/dL (31-37); MEAN CORPUSCULAR VOLUME 93 fL (79-100); MONO # 0.1 x10^3/uL (0.0-1.1); MONO % 6 % (0-9); NEUT # 0.6 x10^3/uL (1.8-7.7); PLATELET COUNT 52 x10^3/uL (140-400); RED BLOOD COUNT 3.23 x10^6/uL (4.30-5.70); RED CELL DISTRIBUTION WIDTH 14.7 % (11.5-14.5)
[2021-07-09 09:33] LABS: CALCIUM 8.2 mg/dL (8.5-10.1); GFR 72.5; POTASSIUM 4.1 mmol/L (3.5-5.1)
[2021-07-09 09:40] LABS: TOTAL BILIRUBIN 0.8 mg/dL (0.2-1.0); TOTAL PROTEIN 6.1 g/dL (6.4-8.2); URIC ACID 3.4 mg/dL (3.5-7.2)
[2021-07-09 11:12] LABS: NEUT % 59 % (31-73)
[2021-07-09 12:22] LABS: BACTERIA,URINE 0 /HPF (0-FEW); RBC,URINE 0 /HPF (0-2); WBC,URINE 0 /HPF (0-4)
== END ==
LOC: ONCLAB 09:02
PROVIDERS: ATTEND Internal Medicine Hematology & Oncology
DX: C83.90 Non-follicular (diffuse) lymphoma, unspecified, unspecified site (principal)
CPT/HCPCS: 36415; 80053; 81001; 83615; 84550; 85025

== ENCOUNTER → 2021-07-14 | Outpatient (CLI) | payer MEDICARE, OTHER ==
[2021-07-14 10:29] LABS: CALCIUM 7.6 mg/dL (8.5-10.1); GFR 72.5; POTASSIUM 4.2 mmol/L (3.5-5.1)
[2021-07-14 10:33] LABS: BASO % 1 % (0-3); EOS # 0.1 x10^3/uL (0.0-0.7); EOS % 2 % (0-3); HEMATOCRIT 30.2 % (39.0-53.0); LYMPH # 0.8 x10^3/uL (1.0-4.8); LYMPH % 21 % (24-48); MEAN CORPUSCULAR HEMOGLOBIN 31 pg (25-35); MEAN CORPUSCULAR HGB CONC 33 g/dL (31-37); MEAN CORPUSCULAR VOLUME 93 fL (79-100); MONO # 0.7 x10^3/uL (0.0-1.1); MONO % 18 % (0-9); NEUT # 2.2 x10^3/uL (1.8-7.7); NEUT % 58 % (31-73); PLATELET COUNT 120 x10^3/uL (140-400); RED BLOOD COUNT 3.24 x10^6/uL (4.30-5.70); RED CELL DISTRIBUTION WIDTH 14.8 % (11.5-14.5); WHITE BLOOD COUNT 3.8 x10^3/uL (4.0-11.0)
[2021-07-14 10:35] LABS: ALBUMIN 3.1 g/dL (3.4-5.0); TOTAL BILIRUBIN 0.4 mg/dL (0.2-1.0); TOTAL PROTEIN 6.3 g/dL (6.4-8.2)
[2021-07-14 11:27] LABS: % BANDS 2 % (0-9); % EOS 4 % (0-5); % LYMPHS 16 % (24-48); % MONOS 18 % (0-10); % SEGS 60 % (35-66); PLT ESTIMATE DECREASED (ADEQUATE); POLYCHROMASIA MOD
== END ==
LOC: ONCLAB 10:00
PROVIDERS: ATTEND Internal Medicine Hematology & Oncology
DX: C83.90 Non-follicular (diffuse) lymphoma, unspecified, unspecified site (principal)
CPT/HCPCS: 36415; 80053; 83615; 85007; 85025

== ENCOUNTER → 2021-07-23 | Outpatient (CLI) | payer MEDICARE, OTHER ==
[2021-07-23 09:49] LABS: BASO # 0.1 x10^3/uL (0.0-0.2); BASO % 3 % (0-3); EOS # 0.1 x10^3/uL (0.0-0.7); EOS % 3 % (0-3); HEMATOCRIT 33.3 % (39.0-53.0); HEMOGLOBIN 10.9 g/dL (13.0-17.5); LYMPH # 0.8 x10^3/uL (1.0-4.8); LYMPH % 19 % (24-48); MEAN CORPUSCULAR HEMOGLOBIN 31 pg (25-35); MEAN CORPUSCULAR HGB CONC 33 g/dL (31-37); MEAN CORPUSCULAR VOLUME 94 fL (79-100); MONO # 0.8 x10^3/uL (0.0-1.1); MONO % 19 % (0-9); NEUT # 2.4 x10^3/uL (1.8-7.7); NEUT % 57 % (31-73); PLATELET COUNT 289 x10^3/uL (140-400); RED BLOOD COUNT 3.54 x10^6/uL (4.30-5.70); RED CELL DISTRIBUTION WIDTH 15.8 % (11.5-14.5); WHITE BLOOD COUNT 4.2 x10^3/uL (4.0-11.0)
[2021-07-23 10:01] LABS: CALCIUM 8.6 mg/dL (8.5-10.1); GFR 72.5
[2021-07-23 10:05] LABS: ALBUMIN 3.1 g/dL (3.4-5.0); TOTAL BILIRUBIN 0.4 mg/dL (0.2-1.0); TOTAL PROTEIN 6.3 g/dL (6.4-8.2)
== END ==
LOC: ONCLAB 09:15
PROVIDERS: ATTEND Physician Assistant
DX: C83.90 Non-follicular (diffuse) lymphoma, unspecified, unspecified site (principal)
CPT/HCPCS: 36415; 80053; 83615; 85025

== ENCOUNTER → 2021-07-29 | Outpatient (CLI) | payer MEDICARE, OTHER ==
[2021-07-29 11:30] LABS: BASO % 0 % (0-3); EOS # 0.1 x10^3/uL (0.0-0.7); EOS % 2 % (0-3); HEMATOCRIT 30.3 % (39.0-53.0); HEMOGLOBIN 10.1 g/dL (13.0-17.5); LYMPH # 0.3 x10^3/uL (1.0-4.8); LYMPH % 4 % (24-48); MEAN CORPUSCULAR HEMOGLOBIN 31 pg (25-35); MEAN CORPUSCULAR HGB CONC 34 g/dL (31-37); MEAN CORPUSCULAR VOLUME 94 fL (79-100); MONO # 0.1 x10^3/uL (0.0-1.1); MONO % 1 % (0-9); NEUT % 93 % (31-73); PLATELET COUNT 57 x10^3/uL (140-400); RED BLOOD COUNT 3.23 x10^6/uL (4.30-5.70); RED CELL DISTRIBUTION WIDTH 16.2 % (11.5-14.5); WHITE BLOOD COUNT 6.5 x10^3/uL (4.0-11.0)
[2021-07-29 11:36] LABS: CREATININE 0.9 mg/dL (0.7-1.3); GFR 81.8; POTASSIUM 4.1 mmol/L (3.5-5.1)
[2021-07-29 11:42] LABS: ALBUMIN/GLOBULIN RATIO 1.1 (1.0-1.7); TOTAL PROTEIN 5.7 g/dL (6.4-8.2)
[2021-07-29 12:34] LABS: % BANDS 9 % (0-9); % EOS 1 % (0-5); % LYMPHS 2 % (24-48); % MYELOS 1 % (0-0); % SEGS 87 % (35-66)
[2021-07-29 12:35] LABS: PLT ESTIMATE DECREASED (ADEQUATE)
== END ==
LOC: ONCLAB 11:06
PROVIDERS: ATTEND Internal Medicine Hematology & Oncology
DX: C83.90 Non-follicular (diffuse) lymphoma, unspecified, unspecified site (principal)
CPT/HCPCS: 36415; 80053; 85007; 85025

== ENCOUNTER → 2021-08-07 | Outpatient (CLI) | payer MEDICARE, OTHER ==
[2021-08-07 13:34] LABS: BASO # 0.1 x10^3/uL (0.0-0.2); BASO % 3 % (0-3); EOS # 0.2 x10^3/uL (0.0-0.7); EOS % 4 % (0-3); HEMATOCRIT 34.1 % (39.0-53.0); HEMOGLOBIN 11.5 g/dL (13.0-17.5); LYMPH # 0.6 x10^3/uL (1.0-4.8); LYMPH % 16 % (24-48); MEAN CORPUSCULAR HEMOGLOBIN 31 pg (25-35); MEAN CORPUSCULAR HGB CONC 34 g/dL (31-37); MEAN CORPUSCULAR VOLUME 92 fL (79-100); MONO % 26 % (0-9); NEUT % 52 % (31-73); PLATELET COUNT 235 x10^3/uL (140-400); RED CELL DISTRIBUTION WIDTH 16.1 % (11.5-14.5); WHITE BLOOD COUNT 3.9 x10^3/uL (4.0-11.0)
[2021-08-07 13:47] LABS: CALCIUM 8.5 mg/dL (8.5-10.1); CREATININE 1.1 mg/dL (0.7-1.3); GFR 64.9; POTASSIUM 4.4 mmol/L (3.5-5.1)
[2021-08-07 13:54] LABS: ALBUMIN 3.5 g/dL (3.4-5.0); ALBUMIN/GLOBULIN RATIO 1.1 (1.0-1.7); TOTAL BILIRUBIN 0.4 mg/dL (0.2-1.0); TOTAL PROTEIN 6.6 g/dL (6.4-8.2)
[2021-08-07 14:07] LABS: % EOS 5 % (0-5); % LYMPHS 27 % (24-48); % MONOS 21 % (0-10); % SEGS 47 % (35-66); BURR CELLS PRESENT; PLT ESTIMATE ADEQUATE (ADEQUATE)
[2021-08-07 14:08] LABS: ANISOCYTOSIS SLIGHT
== END ==
LOC: ONCLAB 12:59
PROVIDERS: ATTEND Physician Assistant
DX: C83.90 Non-follicular (diffuse) lymphoma, unspecified, unspecified site (principal)
CPT/HCPCS: 36415; 80053; 85007; 85025

== ENCOUNTER → 2021-08-27 | Outpatient (CLI) | payer MEDICARE, OTHER ==
[2021-08-27 11:21] LABS: BASO # 0.1 x10^3/uL (0.0-0.2); BASO % 1 % (0-3); EOS # 0.7 x10^3/uL (0.0-0.7); EOS % 10 % (0-3); HEMATOCRIT 39.6 % (39.0-53.0); HEMOGLOBIN 13.3 g/dL (13.0-17.5); LYMPH # 1.1 x10^3/uL (1.0-4.8); LYMPH % 16 % (24-48); MEAN CORPUSCULAR HEMOGLOBIN 32 pg (25-35); MEAN CORPUSCULAR HGB CONC 34 g/dL (31-37); MEAN CORPUSCULAR VOLUME 94 fL (79-100); MONO # 1.1 x10^3/uL (0.0-1.1); MONO % 16 % (0-9); NEUT % 57 % (31-73); PLATELET COUNT 184 x10^3/uL (140-400); RED CELL DISTRIBUTION WIDTH 18.3 % (11.5-14.5)
[2021-08-27 11:34] LABS: ALBUMIN 3.4 g/dL (3.4-5.0); ALBUMIN/GLOBULIN RATIO 1.1 (1.0-1.7); CALCIUM 8.6 mg/dL (8.5-10.1); CREATININE 1.2 mg/dL (0.7-1.3); GFR 58.7; POTASSIUM 4.4 mmol/L (3.5-5.1); TOTAL BILIRUBIN 0.7 mg/dL (0.2-1.0); TOTAL PROTEIN 6.6 g/dL (6.4-8.2)
== END ==
LOC: ONCLAB 10:50
PROVIDERS: ATTEND Internal Medicine Hematology & Oncology
DX: C83.90 Non-follicular (diffuse) lymphoma, unspecified, unspecified site (principal)
CPT/HCPCS: 36415; 80053; 85025

== ENCOUNTER → 2021-09-10 | Outpatient (CLI) | payer MEDICARE, OTHER ==
[2021-09-10 11:06] LABS: BASO # 0.1 x10^3/uL (0.0-0.2); BASO % 1 % (0-3); EOS # 0.8 x10^3/uL (0.0-0.7); EOS % 15 % (0-3); HEMATOCRIT 37.1 % (39.0-53.0); HEMOGLOBIN 12.3 g/dL (13.0-17.5); LYMPH # 0.9 x10^3/uL (1.0-4.8); LYMPH % 16 % (24-48); MEAN CORPUSCULAR HEMOGLOBIN 31 pg (25-35); MEAN CORPUSCULAR HGB CONC 33 g/dL (31-37); MEAN CORPUSCULAR VOLUME 95 fL (79-100); MONO # 0.9 x10^3/uL (0.0-1.1); MONO % 15 % (0-9); NEUT # 2.9 x10^3/uL (1.8-7.7); NEUT % 53 % (31-73); PLATELET COUNT 187 x10^3/uL (140-400); RED BLOOD COUNT 3.91 x10^6/uL (4.30-5.70); RED CELL DISTRIBUTION WIDTH 17.2 % (11.5-14.5); WHITE BLOOD COUNT 5.6 x10^3/uL (4.0-11.0)
[2021-09-10 11:24] LABS: CALCIUM 8.5 mg/dL (8.5-10.1); CREATININE 1.1 mg/dL (0.7-1.3); GFR 64.9; POTASSIUM 4.1 mmol/L (3.5-5.1)
[2021-09-10 11:31] LABS: ALBUMIN 3.5 g/dL (3.4-5.0); ALBUMIN/GLOBULIN RATIO 1.2 (1.0-1.7); TOTAL BILIRUBIN 0.8 mg/dL (0.2-1.0); TOTAL PROTEIN 6.5 g/dL (6.4-8.2)
== END ==
LOC: ONCLAB 10:55
PROVIDERS: ATTEND Physician Assistant
DX: C83.90 Non-follicular (diffuse) lymphoma, unspecified, unspecified site (principal)
CPT/HCPCS: 36415; 80053; 85025